=== PATIENT | female | born 1980 | race Caucasian/White ===

== ENCOUNTER 2019-08-24 19:30 | Observation (INO) | payer MEDICAID ==
[~2019-08-24] VITALS: Ht 152 cm; Wt 64.2 kg
--- OUTSIDE RECORDS SUMMARY | 2019-08-24 19:37 | XMS REPORT | Continuity of Care Document ---
Author Author [facility] Organization [facility] Address Unknown Phone Unavailable Care Team Providers Care Receiving Coordinator Name Role Phone BRIDGET HALE DO PCP Insurance Providers Payer Name Policy Number Subscriber Name Relationship [facility] [id number] Jewels Becerra 16 Self Problems Medical Problems Problem Onset Date Status Lumbar spasm Unknown Active Right shoulder strain Unknown Active Gingivitis Unknown Active Toothache Unknown Active Gingivitis Unknown Active Myalgia Unknown Active Shoulder pain Unknown Active Medications Medication Dose Route Sig Days/Qty Instructions Order Date Disc ontinued Date Status Hydrocodone Bit/Acetaminophen NEEDED 03/08/10 08/30/11 Discontinued Metoprolol Tartrate 60 Qty 06/18/13 Active Lisinopril/Hydrochlorothiazide 1 Tab PO DAILY 30 Qty 0 06/18/13 Active Hydrocodone/Acetaminophen 1-2 Tab PO EVERY 4-6 HOURS PRN PAIN 10 Qt y 12/01/13 Active Social History Social History Problem Response Recorded Date/Ashok e Smoking Status Current every day smoker 02/11/2014 10:4 0pm Hx Substance Use No 02/11/2014 10:40pm Hx Alcohol Use Y SOCIAL 02/11/2014 10:40pm Query Response Start Date Stop Date Smoking Status Current every day smoker Hospital Discharge Instructions No hospital discharge instructions. Plan of Care No plan of care. Functional Status Query Response Date Recorded Physical Hygiene Self February 11, 2014 10:40pm Disabilities None February 11, 2014 10:40pm Devices Used None February 11, 2014 10:40pm Dressing Self February 11, 2014 10:40pm Ambulation Self February 11, 2014 10:40pm Diet Self February 11, 2014 10:40pm Mental Status Alert February 11, 2014 10:49pm Disabilities None February 11, 2014 10:40pm Devices Used None February 11, 2014 10:40pm Physical Hygiene Self February 11, 2014 10:40pm Dressing Self February 11, 2014 10:40pm Ambulation Self February 11, 2014 10:40pm Diet Self February 11, 2014 10:40pm Allergies, Adverse Reactions, Alerts Allergen Type Severity Reaction Status Last Updated Aspirin Allergy Unknown Active 02/11/14 Naproxen Allergy Severe ANAPHYLACTIC Active 02/11/14 Meloxicam Allergy Unknown Active 02/11/14 Latex Allergy Intermediate RASH, ITCHING Active 02/11/14 Immunizations Name Given Type Hx Influenza Vaccination No Historical Hx Pneumococcal Vaccination No Historical Hx Tetanus, Diptheria, Pertussis Y 2008 Histori jerod Hx Influenza Vaccination No Historical Hx Tetanus, Diptheria, Pertussis Y 2008 Histori jerod Vital Signs Acute Vital Signs Vital Response Date/Time Temperature (Fahrenheit) 97.4 deg F (96.8 - 99.1) Temperature (Calculated Celsius) 36.69224 degrees C (36.0 - 37.3) Pulse Rate (adult) 97 bpm (60 - 100) Respiratory Rate 20 breaths/min (10 - 20) O2 Sat by Pulse Oximetry 94 % (90 - 100) Blood Pressure 163/107 mm Hg Height 5 ft 0 in Weight 131 lb Body Mass Index 25.0 kg/m^2 Results Test Source Date Result Interp. Ref. Range Comments Activated Partial Thromboplast Time March 08, 2010 10:4 7am 25.5 SEC N 24-36 Alanine Aminotransferase (ALT/SGPT) June 22, 2011 8:50am 30 U/L N 9-52 Albumin June 22, 2011 8:50am 3.9 G/DL N 3.5-5 .0 Albumin/Globulin Ratio June 22, 2011 8:50am 1.3 RATIO N 1.1-2.2 Alkaline Phosphatase June 22, 2011 8:50am 115 U/L N 38-126 Anion Gap March 20, 2013 10:27am 14 MEQ/L N 5-15 Aspartate Amino Transf (AST/SGOT) June 22, 2011 8:50am 1 11 U/L H 14-36 BUN/Creatinine Ratio March 20, 2013 10:27am 10 RATIO N 6-26 Band Neutrophils # June 22, 2011 8:50am 0.2 T/MM3 - Band Neutrophils % June 22, 2011 8:50am 2.0 % N 0-6 Basophils # (Auto) March 20, 2013 10:27am 0.0 T/MM3 N 0-0.2 Basophils (%) (Auto) March 20, 2013 10:27am 0.4 % N 0-2 Blood Urea Nitrogen March 20, 2013 10:27am 8.0 MG/DL N 7-17 C-Reactive Protein March 20, 2013 10:27am < 5.0 MG/L 0-9 Calcium Level March 20, 2013 10:27am 9.6 MG/DL N 8.4-10.2 Calculated Osmolality March 20, 2013 10:27am 270 MOSM/KG N 261-280 Carbon Dioxide Level March 20, 2013 10:27am 25 MEQ/L N 22-30 Chloride Level March 20, 2013 10:27am 103 MEQ/L N 98-107 Creatinine March 20, 2013 10:27am 0.8 MG/DL N 0.7 -1.2 Eosinophils # (Auto) March 20, 2013 10:27am 0.0 T/MM3 N 0-0.5 Eosinophils (%) (Auto) March 20, 2013 10:27am 0.4 % N 0-4 Erythrocyte Sedimentation Rate March 20, 2013 10:27am 1 M M/HR N 0-20 Free Thyroxine March 10, 2011 1:24pm 0.90 NG/DL N 0.78-2.19 Globulin June 22, 2011 8:50am 3.0 G/DL N 2.4-3 .6 Glucose Level March 20, 2013 10:27am 84 MG/DL N 65-110 Group A Streptococcus Screen December 23, 2010 12:32pm Negativ e - Strep culture confirmation to follow Hematocrit March 20, 2013 10:27am 44.9 % N 36- 46 Hemoglobin March 20, 2013 10:27am 15.7 GM/DL N 12 -16 Hemoglobin A1c March 10, 2011 1:24pm 4.8 % L 6-7 <6.0 NON-DIABETIC RANGE6.0-7.0 ADA THERAPEUTIC RANGE >7.0 ACTION SUGGESTED Human Chorionic Gonadotropin, Qual March 08, 2010 10:47am Negative - Lymphocytes # (Auto) March 20, 2013 10:27am 2.1 T/MM3 N 1-4.8 Lymphocytes # (Manual) June 22, 2011 8:50am 1.5 T/MM3 N 1-4.8 Lymphocytes % (Manual) June 22, 2011 8:50am 15.0 % L 23-45 Lymphocytes (%) (Auto) March 20, 2013 10:27am 29.4 % N 23-45 Mean Corpuscular Hemoglobin March 20, 2013 10:27am 33.2 U UG N 26-34 Mean Corpuscular Hemoglobin Concent March 20, 2013 10:2 7am 35.0 GM/DL N 31-37 Mean Corpuscular Volume March 20, 2013 10:27am 94.9 UM3 N 80-100 Mean Platelet Volume March 20, 2013 10:27am 8.4 UM3 L 9.4-12.4 Monocytes # (Auto) March 20, 2013 10:27am 0.4 T/MM3 N 0-0.8 Monocytes # (Manual) June 22, 2011 8:50am 0.1 T/MM3 N 0-0.8 Monocytes % (Manual) June 22, 2011 8:50am 1.0 % N 0-9.0 Monocytes (%) (Auto) March 20, 2013 10:27am 5.4 % N 0-9.0 Neutrophils # (Auto) March 20, 2013 10:27am 4.5 T/MM3 N 1.8-7.7 Neutrophils # (Manual) June 22, 2011 8:50am 8.4 T/MM3 H 1.8-7.7 Neutrophils % (Manual) June 22, 2011 8:50am 82.0 % H 33-66 Neutrophils (%) (Auto) March 20, 2013 10:27am 64.3 % N 33-66 Platelet Count March 20, 2013 10:27am 250 T/MM3 N 130-400 Potassium Level March 20, 2013 10:27am 4.3 MEQ/L N 3.6-5 Prothromb Time International Ratio March 08, 2010 10:47am 1.00 N 0.86-1.10 THERAPUTIC RANGE = 2.00-3.00 FOR ANTI-THROMBOSIS THERAPUTIC RANGE = 2.50-3.50 FOR IMPLANTED VALVE RDW Standard Deviation March 20, 2013 10:27am 43.1 FL N 36.9-50.2 Red Blood Count March 20, 2013 10:27am 4.73 M/MM3 N 4.00-5.20 Sodium Level March 20, 2013 10:27am 142 MEQ/L N 1 34-144 Thyroid Antimicrosomal Ab Titer March 10, 2011 1:24 pm Ref lab rpt scanned - --- 03/15/11 0849 ---ANTIMI C previously reported as: SENT OUT Thyroid Stimulating Hormone (TSH) March 10, 2011 1:24pm 2.45 MIU/L N 0.47-4.68 Total Bilirubin June 22, 2011 8:50am 0.60 MG/DL N 0.20-1.30 Total Protein June 22, 2011 8:50am 6.9 G/DL N 6 .3-8.2 Troponin I March 08, 2010 10:47am 0.005 ng/ml N 0 -0.12 Urine Bilirubin August 30, 2011 4:42pm Negative - Has specimen been collected/obtained? Y Urine Blood August 30, 2011 4:42pm Negative - Has specimen been collected/obtained? Y Urine Collection Type August 30, 2011 4:42pm Voided - Has specimen been collected/obtained? Y Urine Color August 30, 2011 4:42pm Yellow - Has specimen been collected/obtained? Y Urine Glucose (UA) August 30, 2011 4:42pm Negative - Has specimen been collected/obtained? Y Urine Ketones August 30, 2011 4:42pm Negative - Has specimen been collected/obtained? Y Urine Leukocyte Esterase August 30, 2011 4:42pm Negative - Has specimen been collected/obtained? Y Urine Nitrite August 30, 2011 4:42pm Negative - Has specimen been collected/obtained? Y Urine Test August 30, 2011 4:42pm Negative - Has specimen been collected/obtained? Y Urine Protein August 30, 2011 4:42pm Negative - Has specimen been collected/obtained? Y Urine Specific [place] August 30, 2011 4:42pm 1.015 - Has specimen been collected/obtained? Y Urine Turbidity August 30, 2011 4:42pm Clear - Has specimen been collected/obtained? Y Urine Urobilinogen August 30, 2011 4:42pm Normal EU/DL - Has specimen been collected/obtained? Y Urine pH August 30, 2011 4:42pm 5.0 - Has specimen been collected/obtained? Y White Blood Count March 20, 2013 10:27am 7.0 T/MM3 N 4.5-11.0 Lab Scanned Report March 20, 2013 11:45am LAB TEST FORM REQUEST [id number] - Glomerular Filtration Rate Calc March 20, 2013 10:27am 82 - Immature Granulocyte # (Auto) March 20, 2013 10:27am 0. 01 T/MM3 N 0.00-0.03 Immature Granulocyte % (Auto) March 20, 2013 10:27am 0.1 % N 0.0-0.5 Urine Microscopic Not Indicated August 30, 2011 4:42pm Not jihan cated - Has specimen been collected/obtained? Y Group A Streptococcus Culture Throat December 23, 2010 1:06pm Name: JEWELS BECERRA Unit #: [id number] : [id number] Sex: F Loc / Svc: ED DOS: 02/11/14 Signed Report #: [id number] DIAGNOSTIC IMAGING REPORT TYPE OF EXAM: SHOULDER RIGHT 2 VIEW Dictated By: PAULA BUTTS MD Indication: ITS.REASON: shoulder pain/injury Comparison: June 18, 2013 Findings: There is no acute fracture, dislocation or malalignment identified. Impression: No acute osseous abnormality. . Procedures No known history of procedures. Encounters Encounter Location Date/Time Departed Emergency Room [facility] 02/11/14 9:43p m Registered Clinic [facility] 12/17/13 9:56am Departed Emergency Room [facility] 12/01/13 6:04p m Recent Diagnosis
--- OUTSIDE RECORDS SUMMARY | 2019-08-24 19:37 | XMS REPORT | Continuity of Care Document ---
Author Author [facility] Organization [facility] Address Unknown Phone Unavailable Care Team Providers Care Novelty Maker Name Role Phone BRIDGET HALE DO PCP Insurance Providers Payer Name Policy Number Subscriber Name Relationship [facility] [id number] Jewels Becerra 16 Self Advance Directives Directive Response Recorded Date/Time Advanced Directives Type None 12/01/13 7:12pm Problems Medical Problems Problem Onset Date Status Lumbar spasm Unknown Active Right shoulder strain Unknown Active Gingivitis Unknown Active Toothache Unknown Active Gingivitis Unknown Active Medications Medication Dose Route Sig Days/Qty Instructions Order Date Disc ontinued Date Status Hydrocodone Bit/Acetaminophen NEEDED 03/08/10 08/30/11 Discontinued Metoprolol Tartrate 60 Qty 06/18/13 Active Lisinopril/Hydrochlorothiazide 30 Qty 0 06/18/13 Active [clonidine] 5 Mg PO TWICE A DAY 12/01/13 Active [klon] PO THREE TIMES A DAY 12/01/13 Active [saph] PO DAILY 12/01/13 Active Amoxicillin 1 Cap PO THREE TIMES A DAY 30 Qty 12/01/13 Active Hydrocodone/Acetaminophen 1-2 Tab PO EVERY 4-6 HOURS PRN PAIN 10 Qt y 12/01/13 Active Social History Social History Problem Response Recorded Date/Ashok e Smoking Status Current every day smoker 12/01/2013 7:12 pm Chewing Tobacco Status No 12/01/2013 7:12pm Hx Substance Use No 12/01/2013 7:12pm Hx Alcohol Use Y social/last time was 2 days ago 2013 7:12pm Query Response Start Date Stop Date Smoking Status Current every day smoker Hospital Discharge Instructions No hospital discharge instructions. Plan of Care No plan of care. Functional Status Query Response Date Recorded Physical Hygiene Self December 01, 2013 7:12pm Disabilities Visual December 01, 2013 7:12pm Devices Used Glasses December 01, 2013 7:12pm Dressing Self December 01, 2013 7:12pm Ambulation Self December 01, 2013 7:12pm Diet Self December 01, 2013 7:12pm Mental Status Alert December 01, 2013 7:23pm Disabilities Visual December 01, 2013 7:12pm Devices Used Glasses December 01, 2013 7:12pm Physical Hygiene Self December 01, 2013 7:12pm Dressing Self December 01, 2013 7:12pm Ambulation Self December 01, 2013 7:12pm Diet Self December 01, 2013 7:12pm Allergies, Adverse Reactions, Alerts Allergen Type Severity Reaction Status Last Updated Aspirin Allergy Unknown Active 12/01/13 Naproxen Allergy Severe ANAPHYLACTIC Active 12/01/13 Latex Allergy Intermediate RASH, ITCHING Active 12/01/13 Immunizations Name Given Type Hx Influenza Vaccination No Historical Hx Pneumococcal Vaccination No Historical Hx Tetanus, Diptheria, Pertussis Y 2008 Histori jerod Hx Influenza Vaccination No Historical Hx Tetanus, Diptheria, Pertussis Y 2008 Histori jerod Vital Signs Acute Vital Signs Vital Response Date/Time Temperature (Fahrenheit) 97.6 deg F (96.8 - 99.1) Temperature (Calculated Celsius) 36.52470 degrees C (36.0 - 37.3) Pulse Rate (adult) 81 bpm (60 - 100) Respiratory Rate 16 breaths/min (10 - 20) O2 Sat by Pulse Oximetry 98 % (90 - 100) Blood Pressure 160/101 mm Hg Height 5 ft 0 in Weight 135 lb Body Mass Index 26.0 kg/m^2 Results Test Source Date Result Interp. [...] Has specimen been collected/obtained? Y Urine Specific [place] August 30, 2011 4:42pm 1.015 - Has [...] 20, 2013 11:45am LAB TEST FORM REQUEST [id number] - Glomerular Filtration Rate Calc March 20, 2013 10:27am 82 - Immature Granulocyte # (Auto) March 20, 2013 10:27am 0. 01 T/MM3 N 0.00-0.03 Immature Granulocyte % (Auto) March 20, 2013 10:27am 0.1 % N 0.0-0.5 Urine Microscopic Not Indicated August 30, 2011 4:42pm Not jihan cated - Has specimen been collected/obtained? Y Group A Streptococcus Culture Throat December 23, 2010 1:06pm Procedures No known history of procedures. Encounters Encounter Location Date/Time Departed Emergency Room [facility] 12/01/13 6:04p m Recent Diagnosis
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
[2019-08-24] MEDS ORDERED: KETAMINE/NaCl 50 MG/5 ML SYRINGE (ED ONLY) IV ONE (19:45)
[2019-08-24] MEDS ORDERED: TETANUS,DIPTH,PERTUSS P/F (BOOSTRIX) 0.5 ML VIAL IM ONE (19:45)
[2019-08-24] MEDS ORDERED: ALBU90AE2 (19:46)
[2019-08-24] MEDS ORDERED: METO50TA15 PO (19:46)
[2019-08-24] MEDS ORDERED: LISI1TAB26 PO (19:46)
[2019-08-24] MEDS ORDERED: morphine INJ 10 MG/ML 1ML (SYR OR VIAL) ONE (20:17)
--- NOTE | 2019-08-24 20:19 | Diagnostic Imaging Report ---
INDICATION: Hip pain status post injury COMPARISON: None. FINDINGS: 2 views of the right hip were obtained and show no fractures, dislocations, or other acute bony abnormalities. Joint spaces are well maintained throughout. The soft tissues appear unremarkable. No radiopaque foreign bodies are identified. IMPRESSION: Unremarkable radiographic exam of the right hip. Dictated by: Dictated on workstation # [id number]
--- NOTE | 2019-08-24 20:19 | NUR ---
dr broussard here seeing patient.
--- NOTE | 2019-08-24 20:20 | Diagnostic Imaging Report ---
INDICATION: Trauma COMPARISON: None FINDINGS: Single frontal view of the chest demonstrates normal heart size and pulmonary vascularity. The lungs are well aerated and clear. No large pleural effusion or pneumothorax is seen. The visualized osseous structures show no acute abnormalities. IMPRESSION: 1. No acute cardiopulmonary process. Dictated by: Dictated on workstation # [id number]
--- NOTE | 2019-08-24 20:21 | Diagnostic Imaging Report ---
INDICATION: Pain status post injury. COMPARISON: None. EXAMINATION: Four radiographic views of the right tibia and fibula were obtained. FINDINGS: There is acute obliquely oriented fracture of the distal tibial shaft. There is mild posterior and lateral displacement of the distal fracture fragment by approximately 1 cm. Additionally, there is acute obliquely oriented fracture of the proximal fibular shaft. There is mild proximal and lateral subluxation of the distal fracture fragment. Joint spaces of the right ankle and knee are maintained. No unexpected radiopaque foreign body is seen. IMPRESSION: Acute fractures of the right tibia and fibula, as described above. Dictated by: Dictated on workstation # [id number]
[2019-08-24 20:22] LABS: BASOPHILS % (AUTO) 0 % (0-10); EOSINOPHILS # (AUTO) 0.1 10^3/uL (0.0-0.3); EOSINOPHILS % (AUTO) 1 % (0-10); HEMATOCRIT 44 % (35-52); HEMOGLOBIN 15.2 G/DL (11.5-16.0); LYMPHOCYTES # (AUTO) 1.7 X 10^3 (1.0-4.0); LYMPHOCYTES % (AUTO) 22 % (12-44); MEAN CORPUSCULAR HEMOGLOBIN 33 PG (25-34); MEAN CORPUSCULAR HGB CONC 34 G/DL (32-36); MEAN CORPUSCULAR VOLUME 95 FL (80-99); MEAN PLATELET VOLUME 8.6 FL (7.4-10.4); MONOCYTES # (AUTO) 0.3 X 10^3 (0.0-1.0); MONOCYTES % (AUTO) 4 % (0-12); NEUTROPHILS # (AUTO) 5.6 X 10^3 (1.8-7.8); NEUTROPHILS % (AUTO) 73 % (42-75); PLATELET COUNT 200 10^3/uL (130-400); RED CELL DISTRIBUTION WIDTH 13.3 % (10.0-14.5); WHITE BLOOD COUNT 7.6 10^3/uL (4.3-11.0)
--- NOTE | 2019-08-24 20:26 | NUR ---
SPLINT APPLIED TO RIGHT LEG.
[2019-08-24 20:30] LABS: ALBUMIN 4.1 GM/DL (3.2-4.5); INR 0.9 (0.8-1.4); PROTHROMBIN TIME PATIENT 12.3 SEC (12.2-14.7)
[2019-08-24] MEDS ORDERED: morphine INJ 10 MG/ML 1ML (SYR OR VIAL) IVP ONE (20:30)
[2019-08-24 20:32] LABS: CALCIUM 8.3 MG/DL (8.5-10.1)
[2019-08-24 20:33] LABS: GLUCOSE 98 MG/DL (70-105); TOTAL PROTEIN 7.2 GM/DL (6.4-8.2)
[2019-08-24 20:34] LABS: CARBON DIOXIDE 22 MMOL/L (21-32)
[2019-08-24 20:35] LABS: BILIRUBIN,TOTAL 0.2 MG/DL (0.1-1.0)
[2019-08-24 20:36] LABS: ALKALINE PHOSPHATASE 72 U/L (40-136)
[2019-08-24 20:37] LABS: CREATININE SERUM 0.74 MG/DL (0.60-1.30); GFR ESTIMATED > 60
[2019-08-24 20:38] LABS: BUN/CREATININE RATIO 8
[2019-08-24 20:39] LABS: ALANINE AMINOTRANSFERASE 33 U/L (0-55)
--- NOTE | 2019-08-24 20:51 | NUR ---
[facility] dispatch called for husbands phone number.
--- NOTE | 2019-08-24 20:55 | NUR ---
pt speaking with on phone [phone]
--- OUTSIDE RECORDS SUMMARY | 2019-08-24 20:58 | XMS REPORT | Continuity of Care Document ---
Demographics Preferred Language Unknown Marital Status Unknown Jewish Affiliation Unknown Race Unknown Ethnic Group Unknown Author Organization Unknown Address Unknown Phone Unavailable Allergies There is no data. Medications There is no data. Problems There is no data. Procedures There is no data. Results Test Result Range Comprehensive metabolic panel - 08/24/19 20:10 Carbon dioxide 22 mmol/L 21-32 Serum or plasma urea nitrogen measurement (mass/volume ) 6 mg/dL 7-18 Serum or plasma creatinine measurement (mass/volume) 0.74 mg/dL 0.60-1.30 Serum or plasma urea nitrogen/creatinine mass ratio 8 NRG Serum or plasma creatinine measurement w ith calculation of estimated glomerular filtration rate > NRG Serum or plasma glucose measurement (mass/volume) 98 mg/dL 70-105 Serum or plasma calcium measurement (mass/volume) 8.3 mg/dL 8.5-10.1 Serum or plasma total bilirubin measurement (mass/volu me) 0.2 mg/dL 0.1-1.0 Serum or plasma alkaline phosphatase kun surement (enzymatic activity/volume) 72 U/L 40-136 Serum or plasma aspartate aminotransfera se measurement (enzymatic activity/volume) 38 U/L 5-34 Serum or plasma alanine aminotransferase measurement (enzymatic activity/volume) 33 U/L 0-55 Serum or plasma protein measurement (mass/volume) 7.2 g/dL 6.4-8.2 Serum or plasma albumin measurement (mass/volume) 4.1 g/dL 3.2-4.5 CALCIUM CORRECTED 8.2 mg/dL 8.5-10.1 PT panel in platelet poor plasma by coag ulation assay - 08/24/19 20:10 Prothrombin time (PT) in platelet poor plasma by coagu lation assay 12.3 s 12.2-14.7 INR in platelet poor plasma or blood by coagulation as say 0.9 0.8-1.4 Serum or plasma choriogonadotropin (preg colleen test) detection - 08/24/19 20:10 Serum or plasma choriogonadotropin ( test) de tection NEGATIVE NEGATIVE Encounters ACCT No. Visit Date/Time Discharge Status Pt. Type Provider Facility Loc./Unit Complaint [id number] 08/24/2019 20:31:00 Document Registration
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
[2019-08-24 21:38] VITALS: BP 158/82
[2019-08-24 21:41] LABS: CHLORIDE 103 MMOL/L (98-107); POTASSIUM 3.5 MMOL/L (3.6-5.0); SODIUM 138 MMOL/L (135-145)
[2019-08-24] MEDS: morphine INJ 4 MG/ML 1 ML (VIAL/SYRINGE) IVP PRN (22:07)
[2019-08-24] MEDS ORDERED: ONDANSETRON 4 MG/2 ML (SDV) Z0FRAN IV PRN (22:30)
[2019-08-24] MEDS ORDERED: NALOXONE 0.4 MG/ML 1 ML (NARCAN) VIAL IV PRN (22:30)
[2019-08-24] MEDS: HYDROmorphone 2 MG/ML VIAL (DILAUDID) IV PRN (23:34)
[2019-08-24] MEDS: LACTATED RINGERS 1,000 ML IV SCH (23:35)
[2019-08-25] VITALS (14 sets, daily range): BP systolic 132–180; BP diastolic 80–107
[2019-08-25] MEDS: morphine INJ 4 MG/ML 1 ML (VIAL/SYRINGE) IVP PRN ×4 (01:45→18:28)
[2019-08-25] MEDS: HYDROmorphone 2 MG/ML VIAL (DILAUDID) IV PRN ×5 (03:39→20:00)
[2019-08-25] MEDS: LACTATED RINGERS 1,000 ML IV SCH ×3 (06:38→19:09)
[2019-08-25] MEDS ORDERED: DEXAMETHASONE 10 MG/ML (DECADRON) 1 ML VIAL ONE ×2 (07:17→10:07)
[2019-08-25] MEDS ORDERED: ONDANSETRON 4 MG/2 ML (SDV) Z0FRAN ONE ×2 (07:17→10:07)
[2019-08-25] MEDS ORDERED: SEVOFLURANE (ULTANE) 15 ML INHAL SOLN ONE ×2 (07:17→11:00)
[2019-08-25] MEDS ORDERED: PROPOFOL INJECTION 50 ML IV ONE (07:17)
[2019-08-25] MEDS ORDERED: LIDOCAINE PF 2% 5 ML (XYLOCAINE) VIAL ONE (07:17)
[2019-08-25] MEDS ORDERED: fentaNYL INJECTION 100 MCG/2 ML AMP ONE ×2 (07:18→09:47)
[2019-08-25] MEDS ORDERED: MIDAZOLAM 2 MG/2 ML (VERSED) VIAL ONE (07:18)
--- NOTE | 2019-08-25 07:40 | Progress Note ---
Standard Progress Note Progress Notes/Assess & Plan Date Seen by a Provider: Aug 25, 2019 Time Seen by a Provider: 07:39 Progress/Assessment & Plan denies paresthesias RLE--in splint. Intact DF and PF of toes and ankle. No pain with PROM. Sensation intact throughout R tibia fx without s/sxs of compartment syndrome to OR this AM ROBIN ARRIOLA MD Aug 25, 2019 07:40
--- NOTE | 2019-08-25 07:41 | Progress Note-Post Operative ---
Post-Operative Progess Note Surgeon (s)/Diamond Grinder (s) Surgeon ROBIN ARRIOLA MD Diamond Grinder: Dallas Macias Pre-Operative Diagnosis right tibia shaft fracture Post-Operative Diagnosis right tibia shaft fracture Procedure & Operative Findings Date of Procedure 08/25/19 Procedure Performed/Findings right tibia IM huyen Anesthesia Type GETA Estimated Blood Loss Estimated blood loss (mL): 250 ml Specimens/Packing Specimens Removed none Packing: none ROBIN ARRIOLA MD Aug 25, 2019 07:41
--- NOTE | 2019-08-25 07:41 | Progress Note-Pre Operative ---
Pre-Operative Progress Note H&P Reviewed The H&P was reviewed, patient examined and no changes noted. Date Seen by Provider: Aug 25, 2019 Time Seen by Provider: 07:40 Date H&P Reviewed: Aug 25, 2019 Time H&P Reviewed: 07:40 Pre-Operative Diagnosis: right tibia shaft fracture ROBIN ARRIOLA MD Aug 25, 2019 07:41
[2019-08-25] MEDS ORDERED: ACETAMINOPHEN 325 MG TABLET PO PRN (07:45)
[2019-08-25] MEDS ORDERED: morphine INJ 4 MG/ML 1 ML (VIAL/SYRINGE) IVP PRN (07:45)
[2019-08-25] MEDS ORDERED: ONDANSETRON 4 MG/2 ML (SDV) Z0FRAN IVP PRN ×2 (07:45→11:45)
[2019-08-25] MEDS ORDERED: meTOprolol TARTRATE 50 MG (LOPRESSOR) TAB PO SCH (08:00)
--- NOTE | 2019-08-25 08:00 | NUR ---
DR ARRIOLA CAME BY TO SEE PT PRIOR TO SURGERY THIS MORNING. PT REPORTS TAKING METOPROLOL TARTRATE 50 MG BID. SHE DID CALL HER TO VERIFY NAME AND DOSE. HER PULSE HAS BEEN ELEVATED OVER 100. DR ARRIOLA ORDERED TO START MED THIS AM AND TO TAKE 1 TABLET WITH A SMALL SIP OF WATER. HE DID CONSULT WITH ANESTHESIA PRIOR TO ORDERING.
--- NOTE | 2019-08-25 09:11 | NUR ---
NILSA RN FROM ER CAME TO GET PT FOR SURGERY. NILSA TOOK PT IN HOSPITAL BED FROM ROOM.
[2019-08-25] MEDS ORDERED: BUPIVACAINE 0.5% 30 ML (SENSORCAINE) VIAL ONE (09:13)
[2019-08-25] MEDS ORDERED: ceFAZolin INJECTION 1,000 MG ONE (09:21)
[2019-08-25] MEDS: LACTATED RINGERS 1,000 ML IV PRN ×2 (09:31→10:29)
[2019-08-25] MEDS ORDERED: METOCLOPRAMIDE INJ 10 MG/2 ML (REGLAN) ONE (09:51)
[2019-08-25] MEDS ORDERED: ROCURONIUM 10 MG/ML 5 ML SYRINGE IV ONE (09:52)
[2019-08-25] MEDS ORDERED: SUCCINYLCHOLINE INJ 100 MG/5 ML SYR ONE (09:52)
[2019-08-25] MEDS ORDERED: GLYCOPYRROLATE 0.2 MG/ML (ROBINUL) 2 ML VIAL ONE (09:56)
[2019-08-25] MEDS ORDERED: NEOSTIGMINE 3 MG/3 ML VIAL ONE (09:56)
[2019-08-25] MEDS ORDERED: HYDROmorphone 2 MG/ML VIAL (DILAUDID) ONE (10:17)
[2019-08-25] MEDS ORDERED: ESMOLOL 100 MG/10 ML (BREVIBLOC) VIAL ONE (10:26)
[2019-08-25] MEDS ORDERED: RT-ALBUTEROL SULF 2.5 MG/3 ML PRE-MIX VIAL INH ONE (11:45)
[2019-08-25] MEDS ORDERED: HYDROmorphone 2 MG/ML VIAL (DILAUDID) IV ONE (11:45)
[2019-08-25] MEDS ORDERED: MEPERIDINE (DEMEROL) INJ 50 MG/ML IVP ONE (11:45)
--- NOTE | 2019-08-25 11:52 | Diagnostic Imaging Report ---
Indication: Tibial nailing. Findings: 1 minute 59 seconds of fluoroscopy time were utilized during tibial nailing. Impression: Fluoroscopy during orthopedic surgery. Dictated by: Dictated on workstation # [id number]
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
--- NOTE | 2019-08-25 12:30 | NUR ---
PT RETURNED FROM PACU IN HOSPITAL BED BY KALANI SIMMONS RN. SURGERY WENT WELL AND THEY DID END UP DOING PROCEDURE WITH A LALIT. PT IS ASKING FOR WATER OR ICE CHIPS AT THIS TIME AND CONTINUES TO BE IN PAIN. SHE HAS FOOT SCD'S ON, IV GOING W/ LR. BUTT CATH STILL IN PLACE.
--- NOTE | 2019-08-25 13:30 | NUR ---
DR ARRIOLA ORDERED DIET TOLERATED. SHE HAS BEEN KEEPING DOWN ICE CHIPS AND WATER SINCE RETURN FOR SURGERY. THIS RN WILL ORDER CLEAR LIQUID TRAY TONIGHT TO SEE HOW SHE DOES TOLERATE IT.
--- NOTE | 2019-08-25 15:57 | Progress Note ---
Standard Progress Note Progress Notes/Assess & Plan Date Seen by a Provider: Aug 25, 2019 Time Seen by a Provider: 15:55 Progress/Assessment & Plan denies paresthesias RLE--in splint. Intact DF and PF of toes and ankle. No pain with PROM. Sensation intact throughout R tibia fx without s/sxs of compartment syndrome to OR this AM Final Diagnosis post op check No complaints denies paresthesias RLE--elevated with foot pumps. Intact DF and PF of toes and ankle. No pain with PROM in any plane. Sensation intact to light touch throughout. sym pulses s/p R tibia IM huyen without s/sxs of compartment syndrome mobilize as able ROBIN ARRIOLA MD Aug 25, 2019 15:57
[2019-08-25] MEDS: meTOprolol TARTRATE 50 MG (LOPRESSOR) TAB PO SCH (21:01)
[2019-08-25] MEDS: oxyCODONE/APAP 5/325MG (PERCOCET 5) TABLET PO PRN (21:01)
--- NOTE | 2019-08-25 21:40 | NUR ---
PT TOLERATING FULL LIQUID DIET WELL. PT ABLE TO EAT PUDDING AND ORANGE JUICE WITHOUT DIFFICULTY OR N/V. PT REQUESTS TO HAVE A REGULAR DIET FOR BREAKFAST. ORDER PLACED PER [facility]VANCE DIET TOLERATED ORDER PER DR. ARRIOLA.
[2019-08-26 00:25] VITALS: BP 130/72
[2019-08-26] MEDS: HYDROmorphone 2 MG/ML VIAL (DILAUDID) IV PRN ×4 (01:42→17:04)
[2019-08-26] MEDS: LACTATED RINGERS 1,000 ML IV SCH ×3 (03:20→21:35)
[2019-08-26] MEDS: oxyCODONE/APAP 5/325MG (PERCOCET 5) TABLET PO PRN ×4 (03:21→21:35)
[2019-08-26 04:25] VITALS: BP 131/73
[2019-08-26 04:49] LABS: HEMOGLOBIN 11.6 G/DL (11.5-16.0)
[2019-08-26 07:41] VITALS: BP 152/74
--- NOTE | 2019-08-26 08:03 | Progress Note ---
Standard Progress Note Progress Notes/Assess & Plan Date Seen by a Provider: Aug 26, 2019 Time Seen by a Provider: 08:01 Progress/Assessment & Plan denies paresthesias RLE--in splint. Intact DF and PF of toes and ankle. No pain with PROM. Sensation intact throughout R tibia fx without s/sxs of compartment syndrome to OR this AM Final Diagnosis no complaints denies paresthesias Vital Signs Date Time Temp Pulse Resp B/P (MAP) Pulse Ox O2 Delivery O2 Flow Rate FiO2 08/26/19 07:54 Room Air 08/26/19 07:41 37.0 90 18 152/74 (100) 93 Room Air 08/26/19 04:25 36.8 68 18 131/73 (92) 98 Nasal Cannula 3.00 08/26/19 00:25 37.1 97 18 130/72 (91) 94 Nasal Cannula 5.00 08/25/19 20:00 92 Nasal Cannula 3.00 08/25/19 19:55 37.2 85 18 132/87 (102) 98 Nasal Cannula 5.00 08/25/19 15:35 37.4 80 20 135/80 (98) 98 Nasal Cannula 5.00 08/25/19 14:31 99 Nasal Cannula 5.00 08/25/19 12:47 36.9 73 18 162/84 (110) 99 Nasal Cannula 5.00 08/25/19 12:20 36.9 10 170/92 (118) 95 Nasal Cannula 5 08/25/19 12:20 Nasal Cannula 5 08/25/19 12:10 10 153/90 (111) 91 OxyMask 2 08/25/19 12:05 OxyMask 2 08/25/19 12:00 10 177/90 (119) 94 OxyMask 10 08/25/19 11:50 10 180/107 (131) 95 OxyMask 10 08/25/19 11:50 OxyMask 10 08/25/19 11:40 14 166/97 (120) 93 OxyMask 10 08/25/19 11:35 OxyMask 10 08/25/19 11:30 14 179/98 (125) 88 OxyMask 10 08/25/19 11:19 OxyMask 9 08/25/19 11:19 36.4 24 178/87 (117) 94 OxyMask 9 I & O 08/26/19 07:00 Intake Total 2972 ml Output Total 4525 ml Balance -1553 ml Laboratory Tests Test 08/26/19 03:45 Range/Units Hemoglobin 11.6 # 11.5-16.0 G/DL Hematocrit 35 35-52 % RLE--no pain with PROM of toes and ankle. sensation intact throughout. Intact DF and PF of toes and ankle s/p R tibia IM huyen PT likely home tomorrow ROBIN ARRIOLA MD Aug 26, 2019 08:03
[2019-08-26] MEDS: ENOXAPARIN 40 MG/0.4 ML (LOVENOX) SYR SC SCH (08:15)
[2019-08-26] MEDS: meTOprolol TARTRATE 50 MG (LOPRESSOR) TAB PO SCH ×2 (08:15→21:35)
[2019-08-26] MEDS ORDERED: BIOT800T PO (08:36)
[2019-08-26] MEDS ORDERED: RT-ALBUINH IH (08:36)
[2019-08-26] MEDS ORDERED: LIDO1ADH66 TP (08:36)
[2019-08-26] MEDS ORDERED: MULT-1136 PO (08:36)
[2019-08-26] MEDS ORDERED: VITA200C18 PO (08:36)
[2019-08-26] MEDS ORDERED: FLUT9.9S NS (08:37)
--- NOTE | 2019-08-26 09:31 | NUR ---
SPOKE WITH THE PT AND WENT THRU THE EXT MED HISTORY TO COMPLETE THE MED REC PT WAS ABLE TO TELL ME WHAT SHE TAKES AND ALL MATCHED THE EXT MED HISTORY OTC MEDS: MTV BIOTIN VIT E LIDOCAINE PATCH PRN FLONASE PRN
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
[2019-08-26 11:41] VITALS: BP 148/76
--- NOTE | 2019-08-26 13:58 | Physical Therapy Daily Note ---
PT Daily Note-Current Subjective Patient report her right LE is "throbbing" since ambulating in a.m. (NWB right LE) Pain Numeric Pain Scale: 8 Location: Right Location Body Site: Ankle Pain Description: Throbbing Mental Status Patient Orientation: Normal For Age Attachments: IV Transfers SCALE: Activities may be completed with or without assistive devices. 1-Eegyuiqkbs-ehzvhbd completes the activity by him/herself with no assistance from a helper. 5-Set-up or Clean-up Assistance-helper sets up or cleans up; patient completes activity. [place] assists only prior to or following the activity. 4-Supervision or Touching Assistance-helper provides verbal cues and/or touching/steadying and/or contact guard assistance as patient completes activity. Assistance may be provided throughout the activity or intermittently. 3-Partial/Moderate Assistance-helper does LESS THAN HALF the effort. [place] lifts, holds or supports trunk or limbs, but provides less than half the effort. 2-Substantial/Maximal Assistance-helper does MORE THAN HALF the effort. [place] lifts or holds trunk or limbs and provides more than half the effort. 6-Deitimucc-dpplws does ALL the effort. Patient does none of the effort to complete the activity. Or, the assistance of 2 or more helpers is required for the patient to complete the activity. If activity was not attempted, code reason: 7-Patient Refused. 9-Not Applicable-not attempted and the patient did not perform the activity before the current illness, exacerbation or injury. 10-Not Attempted due to Environmental Limitations-(lack of equipment, weather restraints, etc.). 88-Not Attempted due to Medical Conditions or Safety Concerns. Weight Bearing Right Lower Extremity: Right Non Weight Bearing Left Lower Extremity: Left Weight Bearing/Tolerated Exercises Supine Ex: Ankle pumps, Heel Slides, Straight leg raise Supine Reps: 12 (issued red theraband per patient request for left LE) Assessment Patient tolerated exercise well and remained in bed with right LE elevated after treatment. Plan dismissal tomorrow. PT Fpc Goals Fpc Goals PT Manager Clinical Pharmacy Goals Time Frame: Aug 29, 2019 Roll Left & Right (QC): 6 Sit to Lying (QC): 6 Lying-Sitting on Side/Bed(QC): 6 Sit to Stand (QC): 6 Chair/Mfl-pd-Szbli Xfer(QC): 6 Toilet Transfer (QC): 6 Does the Patient Walk: Yes Walk 10 feet (QC): 6 Walk 50ft with 2 Turns (QC): 6 Walk 150 ft (QC): 6 1 Step (curb) (QC): 6 PT Plan Treatment/Plan Treatment Plan: Continue Plan of Care Treatment Plan: Education, Functional Activity Kendall, Gait, Safety, Therapeutic Exercise, Transfers Treatment Duration: Aug 29, 2019 Frequency: BID x 4 days Time/GCodes Time In: 1300 Time Out: 1308 Total Billed Treatment Time: 8 Total Billed Treatment 1 visit EX 8 min SHARATH PORTILLO PT Aug 26, 2019 13:58
--- NOTE | 2019-08-26 14:32 | Anesthesia-General Post-Op ---
General Patient Condition Mental Status/LOC: Same as Preop Cardiovascular: Satisfactory Nausea/Vomiting: Absent Respiratory: Satisfactory Pain: Controlled Complications: Absent Post Op Complications Complications None Follow Up Care/Instructions Patient Instructions None needed. Anesthesia/Patient Condition Patient Condition Patient is doing well, C/O pain in her right LE which is to be expected, stable vital signs, no apparent adverse anesthesia problems. SYLWIA SOLORZANO DO Aug 26, 2019 14:32
--- NOTE | 2019-08-26 15:40 | NUR ---
CM/SS visited with patient for discharge needs. Plan: The patient will discharge home tomorrow with a Front Wheeled Walker. CM/SS is unsure at this time if patient will need home health. DME: The patient was provided with a patient preference form. She chose [id number] in [place]. DENNYS/SIRISHA contacted the agency and spoke with Flory. Cm/SS faxed the face sheet, H&P, and script. The patient verbalized that she would prefer to pick it up on her way home. Will continue to follow.
[2019-08-26 16:00] VITALS: BP 142/73
[2019-08-26 20:00] VITALS: BP 139/71
--- NOTE | 2019-08-26 23:40 | NUR ---
PT STATES THAT THE SCDS WERE MAKING HER FEET FEEL CONSTRICTED AND REMOVED THEM. AFTER REMOVAL, PT STATES THAT THE SCD MACHINE WAS MAKING A WEIRD NOSE AND PT ATTEMPTED TO TURN SCD MACHINE OFF WITHOUT ASKING FOR ASSISTANCE. WHEN REACHING TO TURN THE SCD MACHINE OFF, THIS PULLED ON THE IV TUBING CAUSING THE IV TO BE RIPPED OUT. PT REFUSES TO HAVE ANOTHER IV INSERTED AT THIS TIME. THIS RN EDUCATED PT ON USING CALL LIGHT FOR ASSISTANCE AND REASONS FOR IV, INCLUDING PAIN MANAGEMENT USING THERAPEUTIC COMMUNICATION. PT ACKNOWLEDGED TEACHING AND VOICED UNDERSTANDING. PT STILL REFUSES IV. PT IS DRINKING PLENTY OF FLUIDS AND HAS PO PAIN MEDICATION NEEDED. WILL CONTINUE TO MONITOR.
[2019-08-27 00:11] VITALS: BP 142/97
[2019-08-27] MEDS: LACTATED RINGERS 1,000 ML IV SCH ×2 (02:52→08:29)
[2019-08-27] MEDS: oxyCODONE/APAP 5/325MG (PERCOCET 5) TABLET PO PRN ×2 (03:46→08:04)
[2019-08-27 04:00] VITALS: BP 166/96
[2019-08-27 05:08] LABS: HEMOGLOBIN 11.1 G/DL (11.5-16.0)
[2019-08-27 05:36] VITALS: BP 166/96
[2019-08-27 08:00] VITALS: BP 165/97
[2019-08-27] MEDS: meTOprolol TARTRATE 50 MG (LOPRESSOR) TAB PO SCH (08:02)
[2019-08-27] MEDS: ENOXAPARIN 40 MG/0.4 ML (LOVENOX) SYR SC SCH (08:02)
[2019-08-27] MEDS ORDERED: OXYC1TAB87 PO (09:20)
--- NOTE | 2019-08-27 09:22 | Progress Note ---
Standard Progress Note Progress Notes/Assess & Plan Date Seen by a Provider: Aug 27, 2019 Time Seen by a Provider: 09:20 Progress/Assessment & Plan denies paresthesias RLE--in splint. Intact DF and PF of toes and ankle. No pain with PROM. Sensation intact throughout R tibia fx without s/sxs of compartment syndrome to OR this AM Final Diagnosis no complaints denies paresthesias Vital Signs Date Time Temp Pulse Resp B/P (MAP) Pulse Ox O2 Delivery O2 Flow Rate FiO2 08/27/19 08:00 36.6 95 20 165/97 (119) 98 Room Air 08/27/19 04:00 36.4 87 20 166/96 (119) 94 Room Air 08/27/19 00:11 36.2 98 22 142/97 (112) 96 Room Air 08/26/19 20:00 Nasal Cannula 08/26/19 20:00 37.1 106 18 139/71 (93) 94 Room Air 08/26/19 16:00 36.2 85 20 142/73 (96) 97 Room Air 08/26/19 11:41 36.8 88 20 148/76 (100) 93 Room Air I & O 08/27/19 07:00 Intake Total 4180 ml Output Total 3450 ml Balance 730 ml Laboratory Tests Test 08/27/19 04:35 Range/Units Hemoglobin 11.1 L 11.5-16.0 G/DL Hematocrit 34 L 35-52 % RLE--incisions clean and dry. No calf tenderness. Neg Gonzalez's. INtact DF and PF of toes. sensation intact to light touch throughout. no pain with PROM of toes/ankle in any plane. Symmetric pulses s/p R Tibia IM huyen doing well DC home after PT today ROBIN ARRIOLA MD Aug 27, 2019 09:22
--- NOTE | 2019-08-27 10:18 | Physical Therapy Daily Note ---
PT Daily Note-Current Subjective Patient agrees to PT. Patient was informed of PWB status right LE per Dr. Hooper. Pain Numeric Pain Scale: 5-Moderate Pain Location: Right Location Body Site: Knee Pain Description: Acute Mental Status Patient Orientation: Normal For Age Transfers SCALE: Activities may be completed with or without assistive devices. 8-Osrswchpht-gmifyuo completes the activity by him/herself with no assistance from a helper. 5-Set-up or Clean-up Assistance-helper sets up or cleans up; patient completes activity. [place] assists only prior to or following the activity. 4-Supervision or Touching Assistance-helper provides verbal cues and/or touc boogie/steadying and/or contact guard assistance as patient completes activity. Assistance may be provided throughout the activity or intermittently. 3-Partial/Moderate Assistance-helper does LESS THAN HALF the effort. [place] lifts, holds or supports trunk or limbs, but provides less than half the effort. 2-Substantial/Maximal Assistance-helper does MORE THAN HALF the effort. [place] lifts or holds trunk or limbs and provides more than half the effort. 8-Zdhjgwqwz-rqmepy does ALL the effort. Patient does none of the effort to complete the activity. Or, the assistance of 2 or more helpers is required for the patient to complete the activity. If activity was not attempted, code reason: 7-Patient Refused. 9-Not Applicable-not attempted and the patient did not perform the activity before the current illness, exacerbation or injury. 10-Not Attempted due to Environmental Limitations-(lack of equipment, weather restraints, etc.). 88-Not Attempted due to Medical Conditions or Safety Concerns. Sit to Stand (QC): 6 Weight Bearing Right Lower Extremity: Right Partial Weight Bearing Left Lower Extremity: Left Weight Bearing/Tolerated PWB right LE per Dr. Hooper Gait Training Does the Patient Walk?: Yes Distance: 150' Walk 10 feet (QC): 6 Walk 50 ft with 2 Turns(QC): 6 Walk 150 ft (QC): 6 steady, safe and functional with FWW Assessment Patient has no concerns upon returning to home on this date. She will have a FWW for home use with PWB right LE. Education on steps given due to patient declining practice. Patient voices understanding. PT to dismiss patient from services at this time. PT It Service Manager Goals It Service Manager Goals PT [facility] Goals Time Frame: Aug 29, 2019 Roll Left & Right (QC): 6 Sit to Lying (QC): 6 Lying-Sitting on Side/Bed(QC): 6 Sit to Stand (QC): 6 Chair/Cmc-gd-Yhqdy Xfer(QC): 6 Toilet Transfer (QC): 6 Does the Patient Walk: Yes Walk 10 feet (QC): 6 Walk 50ft with 2 Turns (QC): 6 Walk 150 ft (QC): 6 1 Step (curb) (QC): 6 PT Plan Treatment/Plan Treatment Plan: Discontinue PT, goals met Treatment Plan: Education, Functional Activity Kendall, Gait, Safety, Therapeutic Exercise, Transfers Treatment Duration: Aug 29, 2019 Frequency: BID x 4 days Time/GCodes Time In: 948 Time Out: 958 Total Billed Treatment Time: 10 Total Billed Treatment 1 visit GT 10 min SHARATH PORTILLO PT Aug 27, 2019 10:18
[2019-08-27 11:42] VITALS: BP 165/97
--- NOTE | 2019-08-27 13:44 | NUR ---
CM/SS follow up. CM/SS contacted [id number] to follow up and see if patient picked up Walker. They verbalized that she picked it up. No other needs.
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
== END 2019-08-27 11:44 | disposition home or self-care (01) ==
LOC: ER 19:33 → 4TH 20:30
PROVIDERS: ADMIT Orthopaedic Surgery; ATTEND Orthopaedic Surgery
DX: S82.231A Displaced oblique fracture of shaft of right tibia, initial encounter for closed fracture (principal); M25.551 Pain in right hip; M51.36 Other intervertebral disc degeneration, lumbar region; I10 Essential (primary) hypertension; J44.9 Chronic obstructive pulmonary disease, unspecified; J40 Bronchitis, not specified as acute or chronic; L40.50 Arthropathic psoriasis, unspecified; F17.210 Nicotine dependence, cigarettes, uncomplicated; W22.8XXA Striking against or struck by other objects, initial encounter; Y92.410 Unspecified street and highway as the place of occurrence of the external cause; Z79.899 Other long term (current) drug therapy; Z88.6 Allergy status to analgesic agent; Z88.8 Allergy status to other drugs, medicaments and biological substances
CPT/HCPCS: 29505; 36415; 71045; 73502; 73590; 80053; 84703; 85014; 85018; 85025; 85610; 87081; 90471; 90715; 94664; 96374; 96375

== ENCOUNTER → 2019-10-03 | Outpatient (CLI) | payer MEDICAID ==
[~2019-10-03] MED LIST: ALBU90AE2; BIOT800T PO; FLUT9.9S NS; LIDO1ADH66 TP; LISI1TAB26 PO; METO50TA15 PO; MULT-1136 PO; OXYC1TAB87 PO; RT-ALBUINH IH; VITA200C18 PO
--- NOTE | 2019-10-03 11:22 | Diagnostic Imaging Report ---
INDICATION: Follow-up status post ORIF. COMPARISON: 08/24/2019 FINDINGS: Two radiographic views of the right tibia and fibula were obtained. Patient is status post interval ORIF of the tibia. Intramedullary huyen is seen traversing the length of the tibia. Proximal and distal anchor screws are also noted and appear appropriately positioned. No unexpected radiopaque foreign bodies are seen. As a result of the above, there is improved anatomic alignment of the tibial fracture fragments. There is some haziness involving the surrounding soft tissue structures, which may be on the basis of early callus formation. Obliquely oriented minimally displaced fracture of the proximal fibula is also noted. There is suggestion of some early healing about the proximal fibular fracture as well. No new acute fracture or dislocation is seen. Joint spaces are intact. IMPRESSION: 1. Expected postoperative changes of interval tibial ORIF as described above. Dictated by: Dictated on workstation # [id number]
== END ==
LOC: RAD FS 10:45
PROVIDERS: ATTEND Nurse Practitioner
DX: M79.604 Pain in right leg (principal); Z98.890 Other specified postprocedural states
CPT/HCPCS: 73590

== ENCOUNTER → 2019-10-29 | Outpatient (CLI) | payer MEDICAID ==
--- NOTE | 2019-10-29 12:30 | Diagnostic Imaging Report ---
INDICATION: Fracture, post fixation TECHNIQUE: AP and lateral views of the right tibia and fibula CORRELATION STUDY: 10/03/2019 FINDINGS: Longstem intramedullary huyen with proximal distal fixation screws are again demonstrated. Obliquely oriented fracture of the mid to distal tibial diaphysis is still visualized. Does appear to be slight periosteal bridging callus formation noted. The alignment appears to be generally stable. Obliquely oriented fracture through the proximal fibular shaft remains well visualized. Mild healing callus formation along its more distal component. Alignment stable with slight lateral and anterior position of the main distal fracture fragment. Visualized portions of the knee and ankle, unchanged. IMPRESSION: 1.Internal fixation of the mid-distal right tibia fracture. Slight interval healing changes noted, fracture line still well visualized. Continued visualization with no healing changes of the obliquely oriented minimally displaced proximal fibular fracture Dictated by: Dictated on workstation # [id number]
== END ==
LOC: RAD FS 11:02
PROVIDERS: ATTEND Nurse Practitioner
DX: Z48.89 Encounter for other specified surgical aftercare (principal); S82.391D Other fracture of lower end of right tibia, subsequent encounter for closed fracture with routine healing; X58.XXXD Exposure to other specified factors, subsequent encounter
CPT/HCPCS: 73590

== ENCOUNTER → 2019-12-09 | Outpatient (CLI) | payer MEDICAID ==
--- NOTE | 2019-12-09 11:16 | Diagnostic Imaging Report ---
INDICATION: Right leg fracture, followup. TIME OF EXAM: 10:24 AM. COMPARISON: 10/29/2019. FINDINGS: An intramedullary huyen with proximal and distal screws transfix the fracture near the junction of the mid and distal third of the tibia. There has been an increased amount of callus formation at the fracture site but the fracture line does remain clearly visible. The alignment is anatomic. The obliquely oriented fracture of the proximal fibula remains visible as well. The alignment is anatomic. IMPRESSION: Healing tibial and fibular fractures but the fracture lines do remain clearly visible. The alignment is anatomic. Dictated by: Dictated on workstation # [id number]
== END ==
LOC: RAD FS 10:12
PROVIDERS: ATTEND Nurse Practitioner
DX: S82.291D Other fracture of shaft of right tibia, subsequent encounter for closed fracture with routine healing (principal)
CPT/HCPCS: 73590

== ENCOUNTER 2020-09-01 22:02 | Emergency (ER) | payer MEDICAID ==
[~2020-09-01] VITALS: Ht 147.3 cm; Wt 58.0 kg
[2020-09-01] MEDS ORDERED: NS IV 1000 ML 1,000 ML IV SCH (22:15)
[2020-09-01] MEDS ORDERED: FAMOTIDINE 20MG/2ML IV (PEPCID) IVP ONE (22:15)
[2020-09-01 22:26] LABS: HEMATOCRIT 40 % (35-52); HEMOGLOBIN 14.1 G/DL (11.5-16.0); MEAN CORPUSCULAR HEMOGLOBIN 37 PG (25-34); WHITE BLOOD COUNT 6.5 10^3/uL (4.3-11.0)
[2020-09-01 22:27] LABS: BASOPHILS # (AUTO) 0.1 10^3/uL (0.0-0.1); BASOPHILS % (AUTO) 1 % (0-10); EOSINOPHILS % (AUTO) 1 % (0-10); LYMPHOCYTES % (AUTO) 32 % (12-44); MEAN CORPUSCULAR HGB CONC 35 G/DL (32-36); MEAN CORPUSCULAR VOLUME 105 FL (80-99); MEAN PLATELET VOLUME 8.8 FL (7.4-10.4); MONOCYTES # (AUTO) 0.3 X 10^3 (0.0-1.0); MONOCYTES % (AUTO) 5 % (0-12); NEUTROPHILS % (AUTO) 62 % (42-75); PLATELET COUNT 189 10^3/uL (130-400)
[2020-09-01 22:28] LABS: LYMPHOCYTES # (AUTO) 2.1 X 10^3 (1.0-4.0)
[2020-09-01] MEDS ORDERED: NS 100 ML (IVPB) BAG IV ONE (22:30)
[2020-09-01] MEDS ORDERED: IOHEXOL 350 MG/ML 100 ML (OMNIPAQUE 350) VIAL IV ONE (22:30)
[2020-09-01 22:49] LABS: BUN/CREATININE RATIO 15; CARBON DIOXIDE 20 MMOL/L (21-32); CHLORIDE 101 MMOL/L (98-107); CREATININE SERUM 0.78 MG/DL (0.60-1.30); GFR ESTIMATED > 60; POTASSIUM 3.7 MMOL/L (3.6-5.0); SODIUM 136 MMOL/L (135-145)
[2020-09-01 22:50] LABS: ALANINE AMINOTRANSFERASE 97 U/L (0-55); ALBUMIN 3.8 GM/DL (3.2-4.5); ALKALINE PHOSPHATASE 115 U/L (40-136); BILIRUBIN,TOTAL 0.4 MG/DL (0.1-1.0); GLUCOSE 87 MG/DL (70-105); LIPASE 31 U/L (8-78); TOTAL PROTEIN 6.2 GM/DL (6.4-8.2)
--- NOTE | 2020-09-01 23:03 | ED Abdominal Pain ---
General Chief Complaint: Abdominal/GI Problems Stated Complaint: ABD PAIN Nursing Triage Note: 00 mgPt in per [facility] with c/o abd pain w/ N/V/D for past 2 days. States saw Gianna Imani today and labs were drawn. Reports pain radiates into her rt shoulder. 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 4 mg Zofran and 100 fentynl per EMS. Sepsis Screen: No Definite Risk Source of Information: Patient Exam Limitations: No Limitations History of Present Illness Date Seen by Provider: September 01, 2020 Time Seen by Provider: 22:00 Initial Comments Patient is a 40-year-old female who presents with right upper quadrant pain intermittent for the past 2 days. Patient reports nausea, bilious emesis and watery diarrhea. Pain is described as sharp and radiates to her right shoulder blade. It is rated continuous and rated moderate to severe. It has progressed since patient was evaluated by her PCP earlier today. Labs were drawn. Results are unknown. Patient denies hematemesis coffee-ground emesis, melena and hematochezia. No fever chills or sweats. No chest pain palpitations shortness of breath. No other acute symptoms or complaints. Patient still has a gallbladder. She drinks heavily on the weekend and has had alcohol earlier today. Timing/Duration: 2-3 Days Severity/Quality: Moderate Location: Other Radiation: Other Activities at Onset: Other Modifying Factors: Improves With Other Associated Symptoms: Other Allergies and Home Medications Allergies Coded Allergies: aspirin (Verified Allergy, Unknown, 08/24/19) naproxen (Verified Allergy, Unknown, 08/24/19) Home Medications Albuterol Sulfate 1 Puff Puff, 2 PUFF IH Q4H PRN for SHORTNESS OF BREATH, (Reported) 1 PUFF = 90 MCG Biotin 800 Mcg Tablet, 800 MCG PO DAILY, (Reported) Fluticasone Propionate 9.9 Ml [place].susp, 1 SPRAY NS DAILY PRN for CONGESTION, (Reported) 1 SPRAY EACH NARE DAILY Lidocaine 1 Each Adh..patch, 1 EACH TP DAILY PRN for PAIN-BREAKTHROUGH, (Reported) Lisinopril/Hydrochlorothiazide 1 Each Tablet, 1 EA PO 1400, (Reported) Metoprolol Tartrate 50 Mg Tablet, 50 MG PO BID, (Reported) Multivitamin 1 Each Tablet, 1 EACH PO DAILY, (Reported) Oxycodone HCl/Acetaminophen 1 Each Tablet, 1 TAB PO Q4H Prescribed by: ROBIN ARRIOLA on 08/27/19 0920 Vitamin E Acetate 200 Unit Capsule, 200 UNIT PO DAILY, (Reported) Patient Home Medication List Home Medication List Reviewed: Yes Review of Systems Review of Systems Constitutional: see HPI EENTM: See HPI Respiratory: See HPI Cardiovascular: See HPI Gastrointestinal: See HPI Genitourinary: See HPI Musculoskeletal: see HPI Skin: see HPI Psychiatric/Neurological: See HPI Endocrine: See HPI Hematologic/Lymphatic: See HPI All Other Systems Reviewed Negative Unless Noted: Yes Past Zvalhkv-Xsxbwq-Mixilo Hx Past Med/Social Hx: Reviewed Nursing Past Med/Soc Hx Patient Social History Alcohol Use: Regular Use Number of Drinks Today: AA Alcohol Beverage of Choice: Beer Smoking Status: Current Everyday Smoker Type Used: Cigarettes 2nd Hand Smoke Exposure: Yes Recent Infectious Disease Expo: No Recent Hopitalizations: No Immunizations Up To Date Tetanus Booster (TDap): Unknown Date of Pneumonia Vaccine: Jul 30, 2014 Seasonal Allergies Seasonal Allergies: No Past Medical History Surgeries: No Respiratory: Yes Asthma Currently Using CPAP: No Currently Using BIPAP: No Cardiac: Yes Hypertension Neurological: No : No 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 oz. kg; 26.00 BMI Method: General Appearance: WD/WN, no apparent distress, obese, other (Facial flushing with rubor, conjunctiva injected. 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 as tested, alert, oriented x 3 Skin: normal color Lymphatic: no adenopathy Focused Exam Sepsis Stage: Ruled Out Progress/Results/Core Measures Results/Orders Lab Results Laboratory Tests Test 09/01/20 22:14 Range/Units White Blood Count 6.5 4.3-11.0 10^3/uL Red Blood Count 3.86 L 4.35-5.85 10^6/uL Hemoglobin 14.1 11.5-16.0 G/DL Hematocrit 40 35-52 % Mean Corpuscular Volume 105 H 80-99 FL Mean Corpuscular Hemoglobin 37 H 25-34 PG Mean Corpuscular Hemoglobin Concent 35 32-36 G/DL Red Cell Distribution Width 13.2 10.0-14.5 % Platelet Count 189 130-400 10^3/uL Mean Platelet Volume 8.8 7.4-10.4 FL Immature Granulocyte % (Auto) 0 % Neutrophils (%) (Auto) 62 42-75 % Lymphocytes (%) (Auto) 32 12-44 % Monocytes (%) (Auto) 5 0-12 % Eosinophils (%) (Auto) 1 0-10 % Basophils (%) (Auto) 1 0-10 % Neutrophils # (Auto) 4.0 1.8-7.8 X 10^3 Lymphocytes # (Auto) 2.1 1.0-4.0 X 10^3 Monocytes # (Auto) 0.3 0.0-1.0 X 10^3 Eosinophils # (Auto) 0.0 0.0-0.3 10^3/uL Basophils # (Auto) 0.1 0.0-0.1 10^3/uL Immature Granulocyte # (Auto) 0.0 0.0-0.1 10^3/uL Sodium Level 136 135-145 MMOL/L Potassium Level 3.7 3.6-5.0 MMOL/L Chloride Level 101 98-107 MMOL/L Carbon Dioxide Level 20 L 21-32 MMOL/L Anion Gap 15 H 5-14 MMOL/L Blood Urea Nitrogen 12 7-18 MG/DL Creatinine 0.78 0.60-1.30 MG/DL Estimat Glomerular Filtration Rate > 60 BUN/Creatinine Ratio 15 Glucose Level 87 70-105 MG/DL Calcium Level 8.0 L 8.5-10.1 MG/DL Corrected Calcium 8.2 L 8.5-10.1 MG/DL Total Bilirubin 0.4 0.1-1.0 MG/DL Aspartate Amino Transf (AST/SGOT) 226 H 5-34 U/L Alanine Aminotransferase (ALT/SGPT) 97 H 0-55 U/L Alkaline Phosphatase 115 40-136 U/L Troponin I < 0.30 <0.30 NG/ML Total Protein 6.2 L 6.4-8.2 GM/DL Albumin 3.8 3.2-4.5 GM/DL Lipase 31 8-78 U/L Serum Alcohol 273 H <10 MG/DL My Orders Orders - PAULA MITCHELL DO Cbc With Automated Diff (09/01/20 22:10) Comprehensive Metabolic Panel (09/01/20 22:10) Troponin I Fs (09/01/20 22:10) Ekg-Prn For Chest Pain Or Rhyt (09/01/20 22:10) Chest 1 View Ap/Pa Only (09/01/20 22:10) Lipase (09/01/20 22:10) Ns Iv 1000 Ml (Sodium Chloride 0.9%) (09/01/20 22:15) Famotidine Injection (Pepcid Injection) (09/01/20 22:15) Ct Abdomen/Pelvis W (09/01/20 22:14) Iohexol Injection (Omnipaque 350 Mg/Ml 1 (09/01/20 22:30) Di Iv Start (Assessment) .IV start (09/01/20 22:16) Ns (Ivpb) (Sodium Chloride 0.9% Ivpb Bag (09/01/20 22:30) Alcohol (09/01/20 22:57) Lorazepam Injection (Ativan Injection) (09/02/20 00:00) Medications Given in ED Current Medications Medications Dose Ordered Sig/[place] Route Start Time Stop Time Status Last Admin Dose Admin Famotidine 20 mg ONCE ONCE IVP 09/01/20 22:15 09/01/20 22:16 DC 09/01/20 22:23 20 MG Iohexol 100 ml ONCE ONCE IV 09/01/20 22:30 09/01/20 22:31 DC 09/01/20 22:39 100 ML Sodium Chloride 100 ml ONCE ONCE IV 09/01/20 22:30 09/01/20 22:31 DC 09/01/20 22:40 100 ML Vital Signs/I&O 09/01/20 22:02 Temp 36.7 Pulse 98 Resp 16 B/P (MAP) 141/93 (109) Pulse Ox 97 O2 Delivery Room Air 09/01/20 23:59 Intake Total 800 ml Balance 800 ml Blood Pressure Mean: 109 Departure Communication (Admissions) EKG: Reviewed CT abdomen pelvis: No acute intra-abdominal disease. Patient given 100 fentanyl, 4 of Zofran prior to ED arrival. Pepcid and Ativan in the ED. Patient with elevation of LFTs and alcohol. Patient states she has had one drink earlier today. Suspect peptic ulcer disease versus pancreatitis versus biliary colic. Patient resting much more comfortably. Explained to the patient the importance of abstaining from alcohol for several months to allow for possible peptic ulcer to heal. She is to otherwise follow-up with her PCP for reevaluation tomorrow. Patient states she does experience some symptoms of alcohol withdrawal but denies hallucinations and seizures. Will prescribe Ativan to facilitate outpatient detox. Explicit and strict return precautions reviewed. Patient verbalizes understanding agreement discharge instructions prior to departure. Impression Primary Impression: Abdominal pain Additional Impression: Alcohol dependence Disposition: HOME, SELF-CARE Condition: Stable Departure-Patient Inst. Decision time for Depature: 00:14 Referrals: NO,LOCAL PHYSICIAN (PCP/Family) Primary Care Physician Patient Instructions: Alcohol Use Disorder ED, Severe Abdominal Pain, Adult (DC) Add. Discharge Instructions: You were evaluated in the emergency department for abdominal pain. Lab and imaging were performed and are nondiagnostic. The exact cause of your symptoms is not being determined. Symptoms are most consistent with peptic ulcer disease versus gastritis versus possible gallbladder disease. Please discontinue alcohol, caffeine, spicy foods take newly prescribed medications as directed. Additionally, you can take Ativan as prescribed for symptoms withdrawal. Follow-up with your PCP tomorrow for reevaluation. If you develop new or worsening symptoms, return to the ED. All discharge instructions reviewed with patient and/or family. Voiced understanding. Scripts Lorazepam (Ativan) 2 Mg Tablet 2 MG PO Q4H for Anxiety for 7 Days, #12 TAB Prov: PAULA MITCHELL DO 09/02/20 Ondansetron (Ondansetron Odt) 4 Mg Tab.rapdis 4 MG PO Q6H, #10 TAB Prov: PAULA MITCHELL DO 09/02/20 Omeprazole (Omeprazole) 40 Mg Capsule. 40 MG PO DAILY PRN, #30 CAP Prov: PAULA MITCHELL DO 09/02/20 Famotidine (Pepcid) 20 Mg Tablet 20 MG PO BID, #30 TAB Prov: PAULA MITCHELL DO 09/02/20 PAULA MITCHELL DO September 01, 2020 23:02
[2020-09-02] MEDS ORDERED: LORazepam INJ 2 MG/ML (ATIVAN) VIAL IVP ONE
[2020-09-02] MEDS ORDERED: OMEP40CA27 PO (00:17)
[2020-09-02] MEDS ORDERED: ONDA4TAB11 PO (00:17)
[2020-09-02] MEDS ORDERED: FAMO-119 PO (00:17)
[2020-09-02] MEDS ORDERED: LORA-407 PO (00:17)
[2020-09-02 00:33] VITALS: BP 141/93
--- NOTE | 2020-09-02 05:21 | Diagnostic Imaging Report ---
INDICATION: Chest pain Portable chest 10:37 PM Heart size and pulmonary vascularity are normal. There is some pleural scarring at the left lung base with some tenting laterally. This is unchanged compared to 08/24/2019. There are no infiltrates, effusions or pneumothoraces. IMPRESSION: Pleural parenchymal scarring left lateral lung base. This is stable from prior exams. No acute abnormality seen. Dictated by: Dictated on workstation # [id number]
--- NOTE | 2020-09-02 06:18 | Diagnostic Imaging Report ---
PROCEDURE: CT abdomen and pelvis with contrast. TECHNIQUE: Multiple contiguous axial images were obtained through the abdomen and pelvis after administration of intravenous contrast. Auto Exposure Controls were utilized during the CT exam to meet ALARA standards for radiation dose reduction. All CT scans use one or more of the following dose optimizing techniques: automated exposure control, MA and/or KvP adjustment based on patient size and exam type or iterative reconstruction. INDICATION: Abdominal pain with nausea and vomiting. Thyroid storm. Patient has been treated with radiation. FINDINGS: Lung bases are clear. There is diffuse fatty change of the liver with mild hepatomegaly. The gallbladder and bile ducts are normal. Pancreas and spleen are normal. Adrenal glands and kidneys are normal. The bowel gas pattern is normal throughout. There is no evidence of bowel obstruction. No evidence of constipation. No free air or free fluid. No bony abnormalities. IMPRESSION: Fatty change of the liver, otherwise normal CT abdomen. These findings are concordant with the preliminary report. Dictated by: Dictated on workstation # [id number]
== END 2020-09-02 00:34 | disposition home or self-care (01) ==
LOC: EDUNIT# 22:02 → ER FS 22:03
DX: R10.11 Right upper quadrant pain (principal); J45.909 Unspecified asthma, uncomplicated; I10 Essential (primary) hypertension; G89.29 Other chronic pain; M54.9 Dorsalgia, unspecified; E66.9 Obesity, unspecified; F10.20 Alcohol dependence, uncomplicated; F17.210 Nicotine dependence, cigarettes, uncomplicated; Z88.8 Allergy status to other drugs, medicaments and biological substances; Z68.26 Body mass index [BMI] 26.0-26.9, adult; Z79.899 Other long term (current) drug therapy; Z79.891 Long term (current) use of opiate analgesic
CPT/HCPCS: 36415; 71045; 74177; 80053; 83690; 84484; 85025; 99284; G0480; 80320

== ENCOUNTER 2020-09-29 12:37 | Emergency (ER) | payer MEDICAID ==
[~2020-09-29] VITALS: Ht 152.4 cm; Wt 589.0 kg
[~2020-09-29 12:37] MED LIST changes: +FAMO-119 PO; +LORA-407 PO; +OMEP40CA27 PO; +ONDA4TAB11 PO
--- NOTE | 2020-09-29 13:19 | Diagnostic Imaging Report ---
INDICATION: Leg pain. COMPARISON: 12/09/2019. TECHNIQUE: Two radiographs of the right tibia and fibula dated 09/29/2020. FINDINGS: The previously noted proximal fibular fracture demonstrates interval healing, appearing nearly completely healed at this time. Interval healing of the previously noted internally fixated distal tibial shaft fracture with increasing callus formation and decreasing conspicuity of the fracture planes; however, some of the fracture planes remain slightly visualized. Fracturing of the 2 screws involving the distal aspect of the intramedullary huyen within the tibia. No new fracture or dislocation. No suspicious radiopaque foreign body. IMPRESSION: Interval healing although slightly incomplete healing of the previously noted internally fixated distal tibial shaft fracture remaining in stable alignment. Fracturing of the 2 distal screws associated with the tibial intramedullary huyen. Interval healing of the previously noted proximal fibular fracture. No new acute fracture. Dictated by: Dictated on workstation # [id number]
--- NOTE | 2020-09-29 14:06 | Diagnostic Imaging Report ---
INDICATION: Right leg pain, post leg surgery for fracture 8 months ago. TECHNIQUE: Multiple real-time grayscale images were obtained over the right lower extremity in various projections, bilaterally. Additional duplex Doppler and color Doppler images were also obtained. CORRELATION STUDY: None FINDINGS: Color and grayscale sonographic images demonstrate no intraluminal defect within the visualized portion of the common femoral, superficial femoral and/or popliteal veins to suggest thrombus formation. These vessels demonstrate normal response to compression and augmentation. No soft tissue fluid collection. IMPRESSION: 1. Negative for deep venous thrombosis of the right leg. Dictated by: Dictated on workstation # [id number]
--- NOTE | 2020-09-29 14:53 | ED Lower Extremity ---
General Chief Complaint: Lower Extremity Stated Complaint: R LEG PAIN Nursing Triage Note: pt arrived by private vehicle with chief complaint of right leg pain/injury. Onset was 2 days ago, when the patient was turning and had leg pain where she previously had surgery by Dr. Arriola. Pt stated she had pain when moving foot up or down and had shooting pain down the leg. Pt stated pain was about a 6. Pt is allergic to aspirin. Pt smokes 5 cigs a day, denies drinking or using drugs. vitals were done on arrival. report was given to provider. Nursing Sepsis Screen: No Definite Risk Source: patient, old records Exam Limitations: no limitations History of Present Illness Date Seen by Provider: Sep 29, 2020 Time Seen by Provider: 12:45 Initial Comments This 40-year-old male presents to the emergency room with complaints of right lower leg pain on the lateral aspect after pivoting on that foot. There was no blunt trauma, only a twisting or pivoting motion. Pain is been present for about 2 days. She has a history of tibial and fibula fracture about a year ago with internal fixation by Dr. ARRIOLA. Allergies and Home Medications Allergies Coded Allergies: aspirin (Verified Allergy, Unknown, 08/24/19) naproxen (Verified Allergy, Unknown, 08/24/19) Home Medications Albuterol Sulfate 1 Puff Puff, 2 PUFF IH Q4H PRN for SHORTNESS OF BREATH, (Reported) 1 PUFF = 90 MCG Biotin 800 Mcg Tablet, 800 MCG PO DAILY, (Reported) Famotidine 20 Mg Tablet, 20 MG PO BID Prescribed by: PAULA MITCHELL on 09/02/2016 Fluticasone Propionate 9.9 Ml [place].susp, 1 SPRAY NS DAILY PRN for CONGESTION, (Reported) 1 SPRAY EACH NARE DAILY Lidocaine 1 Each Adh..patch, 1 EACH TP DAILY PRN for PAIN-BREAKTHROUGH, (Reported) Lisinopril/Hydrochlorothiazide 1 Each Tablet, 1 EA PO 1400, (Reported) Lorazepam 2 Mg Tablet, 2 MG PO Q4H Prescribed by: PAULA MITCHELL on 09/02/2016 Metoprolol Tartrate 50 Mg Tablet, 50 MG PO BID, (Reported) Multivitamin 1 Each Tablet, 1 EACH PO DAILY, (Reported) Omeprazole 40 Mg Capsule.dr, 40 MG PO DAILY PRN Prescribed by: PAULA MITCHELL on 09/02/2016 Ondansetron 4 Mg Tab.rapdis, 4 MG PO Q6H Prescribed by: PAULA MITCHELL on 09/02/2016 Oxycodone HCl/Acetaminophen 1 Each Tablet, 1 TAB PO Q4H Prescribed by: ROBIN ARRIOLA on 08/27/19 0920 Vitamin E Acetate 200 Unit Capsule, 200 UNIT PO DAILY, (Reported) Patient Home Medication List Home Medication List Reviewed: Yes Review of Systems Constitutional: no symptoms reported Respiratory: no symptoms reported : No Musculoskeletal: see HPI Skin: no symptoms reported Psychiatric/Neurological: No Symptoms Reported Past Isuemqa-Ijysqh-Vfjadd Hx Patient Social History Alcohol Use: Denies Use Number of Drinks Today: AA Alcohol Beverage of Choice: Beer Type Used: Cigarettes 2nd Hand Smoke Exposure: Yes Recent Infectious Disease Expo: No Recent Hopitalizations: No Immunizations Up To Date Tetanus Booster (TDap): Unknown Date of Pneumonia Vaccine: Jul 30, 2014 Seasonal Allergies Seasonal Allergies: No Past Medical History Surgeries: Yes (right leg w/ huyen) Orthopedic (ORIF of the right tibia), Tubal Ligation Respiratory: Yes Asthma Currently Using CPAP: No Currently Using BIPAP: No Cardiac: Yes Hypertension Neurological: No 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 oz. kg; 253.00 BMI Method: General Appearance: WD/WN, no apparent distress Legs: right leg other (Surgical changes and scarring noted to the right lower extremity with some muscle atrophy. There is tenderness along the lateral aspect of the right lower leg. No inflammatory changes.) Progress/Results/Core Measures Results/Orders My Orders Orders - MARK QUINTERO MD Tibia/Fibula, Right, 2 Views (09/29/20 12:51) Us Venous Lower Ext Rt (09/29/20 12:51) Vital Signs/I&O 09/29/20 09/29/20 12:45 15:07 Temp 36.2 Pulse 102 88 Resp 18 16 B/P (MAP) 203/121 (148) 149/115 Pulse Ox 97 97 O2 Delivery Room Air Room Air Blood Pressure Mean: 148 Progress Progress Note : Progress Note X-rays and venous ultrasound were obtained of the right lower leg. No DVT was identified. Healing of fracture is noted. The huyen is in place but there are fractures of the distal screws. These are old wound compared with prior x-rays. This was discussed with Dr. ARRIOLA and no emergent treatments were recommended. Patient was advised to follow-up on an outpatient basis and take Tylenol and ibuprofen for pain. Departure Impression Primary Impression: Right leg pain Disposition: HOME, SELF-CARE Condition: Stable Departure-Patient Inst. Decision time for Depature: 14:52 Referrals: NO,LOCAL PHYSICIAN (PCP/Family) Primary Care Physician Patient Instructions: NO INSTRUCTIONS GIVEN Add. Discharge Instructions: Follow-up with Dr. Arriola regarding the pain in your right leg. Call to make an appointment. You may continue using Tylenol and/or ibuprofen for treatment of your pain. Call with questions or concerns. Return to the ER if you have worsening symptoms. All discharge instructions reviewed with patient and/or family. Voiced under standing. Copy Copies To 1: ROBIN ARRIOLA MD, JOSHUA T MD Sep 29, 2020 14:53
[2020-09-29 15:07] VITALS: BP 149/115
== END 2020-09-29 15:07 | disposition home or self-care (01) ==
LOC: EDUNIT# 12:37 → ER 12:38
DX: M79.661 Pain in right lower leg (principal); Z87.81 Personal history of (healed) traumatic fracture; I10 Essential (primary) hypertension; J45.909 Unspecified asthma, uncomplicated; G89.29 Other chronic pain; M54.9 Dorsalgia, unspecified; F17.210 Nicotine dependence, cigarettes, uncomplicated; Z79.891 Long term (current) use of opiate analgesic; Z79.51 Long term (current) use of inhaled steroids; Z79.899 Other long term (current) drug therapy; X50.1XXA Overexertion from prolonged static or awkward postures, initial encounter
CPT/HCPCS: 73590

== ENCOUNTER 2021-12-01 11:21 | Emergency (ER) | payer MEDICAID ==
[~2021-12-01 11:21] MED LIST changes: -LISI1TAB26 PO; +LISI1TAB48 PO; -OMEP40CA27 PO; +OMEP40CA6 PO
--- NOTE | 2021-12-01 11:45 | ED Lower Extremity ---
General Chief Complaint: Lower Extremity Stated Complaint: BURST VESSEL LT LEG Source: patient Exam Limitations: no limitations History of Present Illness Date Seen by Provider: Dec 01, 2021 Time Seen by Provider: 11:27 Initial Comments 41-year-old female with past medical history of hypertension coming in due to a bruise to her left lateral leg. She was standing up while in a chair in the shop outside felt a sharp pain in her left lateral leg and immediately noticed some bruising and swelling. Says there is no bite of any kind. The pain then radiated down her leg. Its moderate, now throbbing, intermittent, worse with touching it, better with rest. She is not taking any medicines for it. She otherwise denies any other acute complaints. Does not take any blood thinners Allergies and Home Medications Allergies Coded Allergies: aspirin (Verified Allergy, Unknown, 08/24/19) naproxen (Verified Allergy, Unknown, 08/24/19) Patient Home Medication List Home Medication List Reviewed: Yes Albuterol Sulfate (Proair Hfa) 1 Puff Puff, 2 PUFF IH Q4H PRN for SHORTNESS OF BREATH, (Reported) Entered as Reported by: JUAN C LUONG on 08/26/19835 Biotin (Biotin) 800 Mcg Tablet, 800 MCG PO DAILY, (Reported) Entered as Reported by: JUAN C LUONG on 08/26/19835 Famotidine (Pepcid) 20 Mg Tablet, 20 MG PO BID Prescribed by: PAULA MITCHELL on 09/02/2016 Fluticasone Propionate (Flonase Allergy Relief) 9.9 Ml [place].susp, 1 SPRAY NS DAILY PRN for CONGESTION, (Reported) Entered as Reported by: JUAN C LUONG on 08/26/19 08 Lidocaine (Lidocaine Pain Relief) 1 Each Adh..patch, 1 EACH TP DAILY PRN for PAIN-BREAKTHROUGH, (Reported) Entered as Reported by: JUAN C LUONG on 08/26/19 08 Lisinopril/Hydrochlorothiazide (Lisinopril-Hctz 20-25 mg Tab) 1 Each Tablet, 1 EA PO 1400, (Reported) Entered as Reported by: KAILA SWANSON on 08/24/191945 Lorazepam (Ativan) 2 Mg Tablet, 2 MG PO Q4H Prescribed by: PAULA MITCHELL on 09/02/2016 Metoprolol Tartrate (Metoprolol Tartrate) 50 Mg Tablet, 50 MG PO BID, (Reported) Entered as Reported by: KAILA SWANSON on 08/24/191945 Multivitamin (Multivitamin) 1 Each Tablet, 1 EACH PO DAILY, (Reported) Entered as Reported by: JUAN C LUONG on 08/26/19 08 Omeprazole (Omeprazole) 40 Mg Capsule.dr, 40 MG PO DAILY PRN Prescribed by: PAULA MITCHELL on 09/02/2016 Ondansetron (Ondansetron Odt) 4 Mg Tab.rapdis, 4 MG PO Q6H Prescribed by: PAULA MITCHELL on 09/02/2016 Oxycodone HCl/Acetaminophen (Percocet 5-325 mg Tablet) 1 Each Tablet, 1 TAB PO Q4H Prescribed by: ROBIN ARRIOLA on 08/27/19919 Vitamin E Acetate (Vitamin E) 200 Unit Capsule, 200 UNIT PO DAILY, (Reported) Entered as Reported by: JUAN C LUONG on 08/26/19835 Review of Systems Constitutional: No fever EENTM: No blurred vision Respiratory: No cough Cardiovascular: No chest pain Gastrointestinal: No abdominal pain Genitourinary: no symptoms reported Musculoskeletal: see HPI Skin: see HPI Psychiatric/Neurological: No Symptoms Reported All Other Systems Reviewed Negative Unless Noted: Yes Past Pkkagix-Wortrd-Uucsnf Hx Patient Social History Tobacco Use?: Yes Tobacco type used: Cigarettes Smoking Status: Current Everyday Smoker Substance use?: No Alcohol Use?: Yes Alcohol Frequency: Couple times a week Pt feels they are or have been: No Immunizations Up To Date Tetanus Booster (TDap): Unknown First/Initial COVID19 Vaccinat: Not currently vaccinated Seasonal Allergies Seasonal Allergies: No Past Medical History Surgery/Hospitalization HX: RA; Psoratic arthritis; Psoriasis; Graves Disease treated with radiation; HTN Surgeries: Yes (right leg w/ huyen) Orthopedic, Tubal Ligation Respiratory: Yes Asthma Currently Using CPAP: No Currently Using BIPAP: No Cardiac: Yes Hypertension Neurological: No 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 oz. kg; 253.00 BMI Method: General Appearance: WD/WN, no apparent distress HEENT: PERRL/EOMI, normal ENT inspection, pharynx normal Neck: non-tender, full range of motion, supple, normal inspection Cardiovascular: regular rate, rhythm, no edema, no murmur Respiratory: chest non-tender, lungs clear, normal breath sounds, no respiratory distress, no accessory muscle use Gastrointestinal: normal bowel sounds, non tender, soft; No distended, No guarding Back: normal inspection Legs: left leg other (Small area of ecchymosis over the left lateral thigh about mid femur with some swelling and tenderness to palpation over an area that was clearly a varicose vein) Knees: bilateral knee other (No swelling or tenderness felt behind the knees in the popliteal fossa, no swelling in the calves or pain with squeeze) Neurologic/Tendon: normal sensation, normal motor functions, other (Normal strength with hip abduction and abduction) Neurologic/Psychiatric: no motor/sensory deficits, alert, normal mood/affect Skin: normal color, warm/dry Lymphatic: no adenopathy Progress/Results/Core Measures Progress Progress Note : Progress Note 41-year-old female with above history coming in due to pain and a bruise noted to the left lateral thigh. ABCs were intact and vitals were stable on pres entation. Physical exam appears to be a typical bruise. Possible there was a small muscle tear versus small insect bite. No signs of DVT. No signs of infection. Muscle strength is normal and does not have any evidence of large muscle tear. I believe she is stable for discharge with outpatient follow-up. She was sent home with strict return precautions Departure Impression Primary Impression: Traumatic ecchymosis of left thigh Qualified Codes: S70.12XA - Contusion of left thigh, initial encounter Disposition: HOME, SELF-CARE Condition: Stable Departure-Patient Inst. Decision time for Depature: 11:44 Referrals: NO,LOCAL PHYSICIAN (PCP/Family) Primary Care Physician Patient Instructions: Contusion (DC) Add. Discharge Instructions: Fortunately this does not look like any type of serious blood clot or blockage. This does appear to be a bruise whether it was by a microtear and a muscle, potential insect bite, or could have been a blood vessel leaking like you have mentioned. Fortunately it does not appear dangerous. I would ice it, take Tylenol as needed for pain. Follow-up with your primary care provider in the next week or so for a check of the leg as well as to discuss being on cholesterol medications since you mentioned this. Work/School Note: Work Release Form Date Seen in the Emergency Department: Dec 01, 2021 Return to Work: Dec 02, 2021 Restrictions: No Restrictions LEONELA GOMES MD Dec 01, 2021 11:45
[2021-12-01 11:47] VITALS: BP 159/111
== END 2021-12-01 11:46 | disposition home or self-care (01) ==
LOC: EDUNIT# 11:21 → ER FS 11:23
DX: S70.12XA Contusion of left thigh, initial encounter (principal); F17.210 Nicotine dependence, cigarettes, uncomplicated; Z28.310 Unvaccinated for COVID-19; X58.XXXA Exposure to other specified factors, initial encounter; Y92.513 Shop (commercial) as the place of occurrence of the external cause
CPT/HCPCS: 99281

== ENCOUNTER → 2022-01-19 | Outpatient (CLI) | payer MEDICAID ==
--- NOTE | 2022-01-10 21:16 | HISTORY AND PHYSICAL ---
DATE OF SERVICE: ATTENDING BUSINESS CENTER MANAGER: Mahnaz Maki APRN. HISTORY OF PRESENT ILLNESS: The patient is a 41-year-old female, who has had a longstanding history of fibrocystic breast, which had become painful. She did have a mammogram performed due to breast pain, where two lesions were done identified of the right breast, one which was subareolar and the other at approximately the 11 o'clock position, both small and likely consistent with fibrocystic disease; however, could not rule out a potential neoplastic process. She does not report any abnormal nipple discharge. She has been six times with three live births. She reports that she did take oral contraceptive pills in the past; however, unsure of the duration. She has not had any previous breast biopsies before in the past. She started menses at around age 11 and has not reached menopause at this point. She does not report any family history of breast cancer. PAST MEDICAL HISTORY: History of thyrotoxicosis, hypertension, psoriatic arthritis, rheumatoid arthritis, and degenerative joint disease. PAST SURGICAL HISTORY: Tubal ligation, right lower extremity open reduction and internal fixation. ALLERGIES: ASPIRIN. MEDICATIONS: Albuterol inhaler two puffs b.i.d. p.r.n., clobetasol ointment b.i.d., cyclobenzaprine 10 mg t.i.d., dicyclomine 20 mg daily, famotidine 20 mg daily, gabapentin 100 mg daily, hydrochlorothiazide 50 mg daily, hydrocodone 7.5 mg q.6 hours p.r.n., lisinopril 40 mg daily, lorazepam 1 mg p.r.n., metoprolol 50 mg daily, omeprazole 40 mg daily, ezetimibe 10 mg daily, fluticasone 50 mcg one spray daily, and trazodone 50 mg each day at bedtime. SOCIAL HISTORY: Positive smoke [id number], social alcohol. FAMILY HISTORY: Maternal grandmother, colon cancer. Sister, cervical cancer. REVIEW OF SYSTEMS: A well-nourished female, in no acute distress. She is not experiencing any shortness of breath or difficulty in breathing. No chest pain, palpitations, diaphoresis. No nausea, vomiting, no diarrhea or constipation. No fever, chills, and no recent inadvertent weight loss. All other review of systems negative. PHYSICAL EXAMINATION: VITAL SIGNS: Blood pressure 164/105. Current weight 135.8 pounds at 4 feet 11 inches. CHEST: Clear. Good breath sounds bilaterally. HEART: Regular, no murmurs. EXTREMITIES: No lower extremity edema and negative Homans sign. HEENT: No scleral icterus. NECK: No cervical lymphadenopathy. ABDOMEN: Soft, nontender, and nondistended. BREASTS: Bilateral fibrocystic breast with two small, well-circumscribed nodules, one at approximately 12 o'clock position at the edge of the nipple areolar complex and another one approximately 2 cm from the nipple areolar complex at approximately the 11 o'clock position, which are tender to palpation. There is no axillary lymphadenopathy. ASSESSMENT AND PLAN: A 41-year-old female with two lesions of the right breast. These lesions were detected by mammography and are symptomatic and we will schedule her for either a stereotactic or ultrasound-guided biopsy for tissue diagnosis and then proceed with recommendations from that point further. Job ID: [id number] DocumentID: [id number] Dictated Date: 12/28/2021 15:56:27 Insurance Specialist Date: 12/28/2021 16:45:37 Dictated By: FEROZ WALSH MD
[~2022-01-19] VITALS: Ht 149.9 cm; Wt 61.8 kg
[~2022-01-19] MED LIST changes: +LIDOCAINE 1% INJ 10 ML VIAL INJ ONE
--- NOTE | 2022-01-19 15:56 | Diagnostic Imaging Report ---
INDICATION: Right breast masses. Patient presents for ultrasound guided biopsy. DETAILS OF THE PROCEDURE: The patient was brought to the sonographic suite and placed on the table in the supine position. Ultrasound imaging of the right breast was performed to evaluate for an appropriate entry site. The right breast was then prepped and draped in the usual sterile fashion. A small amount of 1% lidocaine was utilized for local anesthesia. A total of 4 passes was made into the lobulated solid mass at the 9 o'clock location of the right breast 3 cm from the nipple utilizing a 14-gauge Achieve needle. A marker clip was then deployed. Hemostasis was obtained using manual compression. The patient tolerated the procedure well. IMPRESSION: Successful ultrasound guided core biopsy of the lobulated solid mass at the 9 o'clock location of the right breast 3 cm from the nipple. Pathology results are currently pending. Dictated by: Dictated on workstation # [id number]
--- NOTE | 2022-01-19 15:58 | Diagnostic Imaging Report ---
INDICATION: Right breast mass. EXAMINATION: Patient presents for ultrasound-guided core biopsy. PROCEDURE: Patient was brought to the sonographic suite and placed on table in the supine position. Ultrasound imaging of the right breast was performed to evaluate appropriate entry site. Right breast was prepped and draped in the usual sterile fashion. Small amount of 1% lidocaine was utilized for local anesthesia. Total of three core biopsies were made of the solid mass at the 11:00 location in right breast utilizing a 14-gauge Achieve needle. A marker clip was then deployed. Hemostasis was obtained using manual compression. Patient tolerated the procedure well and was sent for post procedure mammogram in satisfactory condition. IMPRESSION: Successful ultrasound-guided core biopsy of the solid mass in the 11:00 location of right breast. Pathology results are currently pending. Dictated by: Dictated on workstation # [id number]
--- NOTE | 2022-01-19 16:33 | Diagnostic Imaging Report ---
INDICATION: Right breast nodules, status post ultrasound-guided core biopsy. Unilateral right 2-D CC and ML mammography was performed after patient underwent ultrasound-guided biopsy. Marker clips were located upper slightly inner right breast at mid depth as well as in the outer right breast at mid to posterior depth. IMPRESSION: Marker clip placements, status post ultrasound guided core biopsy of the 9 and 11 o'clock lesions. Dictated by: Dictated on workstation # [id number]
== END ==
LOC: RAD 13:17
PROVIDERS: ATTEND Surgery
DX: N63.15 Unspecified lump in the right breast, overlapping quadrants (principal); N63.11 Unspecified lump in the right breast, upper outer quadrant
CPT/HCPCS: 19083; 19084; 77065; G0279

== ENCOUNTER 2022-05-05 22:08 | Emergency (ER) | payer MEDICAID ==
[~2022-05-05 22:08] MED LIST changes: +ALBU8.5H6 IH; -LIDOCAINE 1% INJ 10 ML VIAL INJ ONE; -RT-ALBUINH IH
[2022-05-05] MEDS ORDERED: morphine INJ 10 MG/ML 1ML (SYR OR VIAL) IVP STA ×2 (22:20→23:59)
[2022-05-05] MEDS ORDERED: DICYCLOMINE 10 MG/ML (BENTYL) 2 ML AMP IM STA (22:20)
[2022-05-05] MEDS ORDERED: PANTOPRAZOLE 40 MG (PROTONIX) VIAL IV STA (22:20)
[2022-05-05] MEDS ORDERED: NS IV 1000 ML 1,000 ML IV STA (22:20)
--- NOTE | 2022-05-05 22:28 | ED Abdominal Pain ---
General Chief Complaint: Abdominal/GI Problems Stated Complaint: ABD PAIN Nursing Triage Note: Pt brought in by ems with the complaint of abdominal pain. Pt was given 2.5mg of Compazine and 50mcg of Fentanyl en route to the ED. Pt states she has been vomiting green bile throughout the day. Pt states this vomiting and abdominal pain has been going on for about a year intermittently Source of Information: Patient, EMS, Old Records Exam Limitations: No Limitations History of Present Illness Date Seen by Provider: May 05, 2022 Time Seen by Provider: 22:12 Initial Comments 41-year-old female presenting with complaints of recurrent abdominal pain that has mostly epigastric and left-sided. She states the pain radiates to her back. She has been having this pain intermittently for more than a year. She has been seen in the emergency department as well as urgent care in the clinic. She states that no one has been able to tell her what the cause was or how to treat it. She has been on acid reducers and antispasmodic such as Bentyl and nausea medications without significant improvement. She states that when she has an episode like this she usually has about 5 days where she cannot keep anything down and she usually just stays in bed. She felt this episode coming on this am so she tried drinking more water and took a nap. When she woke up this evening the pain was severe and cramping and coming in waves. She checked with nurse line and they advised her to come be seen. She denies any change in the pain with eating or drinking. She has not had an EGD or any endoscopy to evaluate the pain. She denies any abdominal trauma. She has had a tubal ligation but no surgery on her gallbladder or appendix or colon. She denies having fever, chills, cough, congestion, shortness of breath, pain with urination, blood in her stools. She states that when she has an episode like this her stools become "clumpy" and then she has a period of time where she has constipation before returning to more normal stools. EMS was activated to bring her to the emergency department due to her severe pain tonight. From review of her electronic medical record she also has history of alcohol intoxication when she was evaluated for abdominal pain in August 2020. Timing/Duration: 4-6 Hours Severity/Quality: Severe, Cramping, Sharp, Stabbing Location: LUQ, LLQ, Epigastric Radiation: Back Activities at Onset: None Modifying Factors: Worsens With Analgesics (pain and nausea medicine from EMS helped some), Worsens With Palpation Associated Symptoms: Back Pain; No Chest Pain, No Diaphoresis, No Fever/Chills, No Fatigue, No Headache, No Heartburn; Nausea/Vomiting; No Rash, No Shortness of Air, No Swelling/Mass in Abdomen, No Syncope, No Weakness Allergies and Home Medications Allergies Coded Allergies: aspirin (Verified Allergy, Unknown, 08/24/19) naproxen (Verified Allergy, Unknown, 08/24/19) Patient Home Medication List Home Medication List Reviewed: Yes Albuterol Sulfate (Ventolin Hfa) 1 Puff Puff, 2 PUFF IH Q4H PRN for SHORTNESS OF BREATH, (Reported) Entered as Reported by: JUAN C LUONG on 08/26/19835 Biotin (Biotin) 800 Mcg Tablet, 800 MCG PO DAILY, (Reported) Entered as Reported by: JUAN C LUONG on 08/26/19835 Famotidine (Pepcid) 20 Mg Tablet, 20 MG PO BID Prescribed by: PAULA MITCHELL on 09/02/2016 Fluticasone Propionate (Flonase Allergy Relief) 9.9 Ml [place].susp, 1 SPRAY NS DAILY PRN for CONGESTION, (Reported) Entered as Reported by: JUAN C LUONG on 08/26/19 08 Hydrocodone/Acetaminophen (Hydrocodone-Acetamin 5-325 mg) 5 Mg-325 Mg Tablet, 1 TAB PO Q6H PRN for PAIN-SEVERE (8-10) Prescribed by: GOLDIE VITAL on 05/06/22 010 Lidocaine (Lidocaine Pain Relief) 1 Each Adh..patch, 1 EACH TP DAILY PRN for PAIN-BREAKTHROUGH, (Reported) Entered as Reported by: JUAN C LUONG on 08/26/19 08 Lisinopril/Hydrochlorothiazide (Lisinopril-Hctz 20-25 mg Tab) 1 Each Tablet, 1 EA PO 1400, (Reported) Entered as Reported by: KAILA SWANSON on 08/24/191945 Lorazepam (Ativan) 2 Mg Tablet, 2 MG PO Q4H Prescribed by: PAULA MITCHELL on 09/02/2016 Metoprolol Tartrate (Metoprolol Tartrate) 50 Mg Tablet, 50 MG PO BID, (Reported) Entered as Reported by: KAILA SWANSON on 08/24/191945 Multivitamin (Multivitamin) 1 Each Tablet, 1 EACH PO DAILY, (Reported) Entered as Reported by: JUAN C LUONG on 08/26/19 08 Omeprazole (Omeprazole) 40 Mg Capsule.dr, 40 MG PO DAILY PRN Prescribed by: PAULA MITCHELL on 09/02/2016 Ondansetron (Ondansetron Odt) 4 Mg Tab.rapdis, 4 MG PO Q6H Prescribed by: PAULA MITCHELL on 09/02/2016 Ondansetron (Ondansetron Odt) 4 Mg Tab.rapdis, 4 MG PO Q6H PRN for NAUSEA/VOMITING Prescribed by: GOLDIE VITAL on 05/06/22 010 Oxycodone HCl/Acetaminophen (Percocet 5-325 mg Tablet) 1 Each Tablet, 1 TAB PO Q4H Prescribed by: ROBIN ARRIOLA on 08/27/19 09 Vitamin E Acetate (Vitamin E) 200 Unit Capsule, 200 UNIT PO DAILY, (Reported) Entered as Reported by: JUAN C LUONG on 08/26/19 08 Review of Systems Review of Systems Constitutional: No chills, No fever EENTM: No Symptoms Reported Respiratory: No Symptoms Reported Cardiovascular: No Symptoms Reported Genitourinary: Denies Burning, Denies Discharge Musculoskeletal: back pain (epigastric pain radiates to her back) Skin: No rash Psychiatric/Neurological: Anxiety Endocrine: No Symptoms Reported Hematologic/Lymphatic: Denies Blood Clots Past Cxxutad-Mfxhgx-Btbycx Hx Patient Social History Tobacco Use?: No Use of E-Cig and/or Vaping dev: No Substance use?: No Alcohol Use?: Yes Alcohol Frequency: Daily Pt feels they are or have been: No Immunizations Up To Date Tetanus Booster (TDap): Unknown First/Initial COVID19 Vaccinat: Not currently vaccinated Seasonal Allergies Seasonal Allergies: No Past Medical History Surgery/Hospitalization HX: RA; Psoratic arthritis; Psoriasis; Graves Disease treated with radiation; HTN Surgeries: Yes (right leg w/ huyen) Orthopedic, Tubal Ligation Respiratory: Yes Asthma Currently Using CPAP: No Currently Using BIPAP: No Cardiac: Yes Hypertension Neurological: No [employer] History: Tubal Ligation Genitourinary: No Gastrointestinal: No Musculoskeletal: Yes Chronic Back Pain Endocrine: No HEENT: No Cancer: No Psychosocial: Yes Anxiety Integumentary: No Blood Disorders: No Physical Exam Vital Signs Vital Signs - First Documented 05/05/22 22:08 Temp 36.7 Pulse 126 Resp 20 B/P (MAP) 148/111 (123) Pulse Ox 96 O2 Delivery Room Air Capillary Refill : Less Than 3 Seconds Height/Weight/BMI Height: '" Weight: lbs. oz. kg; 27.50 BMI Method: General Appearance: mild distress HEENT: PERRL/EOMI, pharynx normal Neck: non-tender, full range of motion, supple, normal inspection Respiratory: chest non-tender, lungs clear, normal breath sounds, no respir atory distress, no accessory muscle use Cardiovascular: normal peripheral pulses, regular rate, rhythm Gastrointestinal: normal bowel sounds, soft, no pulsatile mass; No distended; guarding; No rebound; tenderness (epigastric and Left side of abdomen) Rectal: deferred Extremities: normal range of motion, non-tender, normal capillary refill Back: no CVA tenderness Neurologic/Psychiatric: alert, oriented x 3 Skin: normal color, warm/dry Progress/Results/Core Measures Results/Orders Lab Results Laboratory Tests Test 05/05/22 22:08 05/05/22 23:00 Range/Units White Blood Count 5.8 4.3-11.0 10^3/uL Red Blood Count 5.15 H 3.80-5.11 10^6/uL Hemoglobin 16.6 H 11.5-16.0 g/dL Hematocrit 46 35-52 % Mean Corpuscular Volume 90 80-99 fL Mean Corpuscular Hemoglobin 32 25-34 pg Mean Corpuscular Hemoglobin Concent 36 32-36 g/dL Red Cell Distribution Width 13.2 10.0-14.5 % Platelet Count 316 130-400 10^3/uL Mean Platelet Volume 8.5 L 9.0-12.2 fL Immature Granulocyte % (Auto) 0 % Neutrophils (%) (Auto) 31 L 42-75 % Lymphocytes (%) (Auto) 60 H 12-44 % Monocytes (%) (Auto) 7 0-12 % Eosinophils (%) (Auto) 2 0-10 % Basophils (%) (Auto) 1 0-10 % Neutrophils # (Auto) 1.8 1.8-7.8 10^3/uL Lymphocytes # (Auto) 3.5 1.0-4.0 10^3/uL Monocytes # (Auto) 0.4 0.0-1.0 10^3/uL Eosinophils # (Auto) 0.1 0.0-0.3 10^3/uL Basophils # (Auto) 0.1 0.0-0.1 10^3/uL Immature Granulocyte # (Auto) 0.0 0.0-0.1 10^3/uL Sodium Level 139 135-145 MMOL/L Potassium Level 3.2 L 3.6-5.0 MMOL/L Chloride Level 100 98-107 MMOL/L Carbon Dioxide Level 23 21-32 MMOL/L Anion Gap 16 H 5-14 MMOL/L Blood Urea Nitrogen 7 7-18 MG/DL Creatinine 0.62 0.60-1.30 MG/DL Estimat Glomerular Filtration Rate 113 BUN/Creatinine Ratio 11 Glucose Level 121 H 70-105 MG/DL Calcium Level 9.5 8.5-10.1 MG/DL Corrected Calcium 9.3 8.5-10.1 MG/DL Total Bilirubin 0.2 0.1-1.0 MG/DL Aspartate Amino Transf (AST/SGOT) 35 H 5-34 U/L Alanine Aminotransferase (ALT/SGPT) 20 0-55 U/L Alkaline Phosphatase 98 40-136 U/L Total Protein 7.9 6.4-8.2 GM/DL Albumin 4.3 3.2-4.5 GM/DL Lipase 40 8-78 U/L Serum Test, Qualitative NEGATIVE NEGATIVE Salicylates Level 1.1 L 5.0-20.0 MG/DL Acetaminophen Level < 10 L 10-30 UG/ML Serum Alcohol 192 H <10 MG/DL Urine Color YELLOW Urine Clarity CLEAR Urine pH 6.0 5-9 Urine Specific [place] <=1.005 1.016-1.022 Urine Protein NEGATIVE NEGATIVE Urine Glucose (UA) NEGATIVE NEGATIVE Urine Ketones NEGATIVE NEGATIVE Urine Nitrite NEGATIVE NEGATIVE Urine Bilirubin NEGATIVE NEGATIVE Urine Urobilinogen 0.2 < = 1.0 MG/DL Urine Leukocyte Esterase NEGATIVE NEGATIVE Urine RBC (Auto) NEGATIVE NEGATIVE Urine RBC NONE /HPF Urine WBC RARE /HPF Urine Squamous Epithelial Cells 5-10 /HPF Urine Crystals NONE /LPF Urine Bacteria FEW H /HPF Urine Casts NONE /LPF Urine Mucus SMALL H /LPF Urine Other MOD CLUE CELLS NOTED /HPF Urine Culture Indicated NO Urine Opiates Screen POSITIVE H NEGATIVE Urine Oxycodone Screen NEGATIVE NEGATIVE Urine Methadone Screen NEGATIVE NEGATIVE Urine Propoxyphene Screen NEGATIVE NEGATIVE Urine Barbiturates Screen NEGATIVE NEGATIVE Ur Tricyclic Antidepressants Screen NEGATIVE NEGATIVE Urine Phencyclidine Screen NEGATIVE NEGATIVE Urine Amphetamines Screen NEGATIVE NEGATIVE Urine Methamphetamines Screen NEGATIVE NEGATIVE Urine Benzodiazepines Screen NEGATIVE NEGATIVE Urine Cocaine Screen NEGATIVE NEGATIVE Urine Cannabinoids Screen NEGATIVE NEGATIVE My Orders Orders - GOLDIE VITAL MD Ua Culture If Indicated (05/05/22 22:19) Cbc With Automated Diff (05/05/22 22:19) Comprehensive Metabolic Panel (05/05/22 22:19) Alcohol (05/05/22 22:19) Drug Screen Stat (Urine) (05/05/22 22:19) Acetaminophen (05/05/22 22:19) Salicylate (05/05/22 22:19) Ekg Tracing (05/05/22 22:19) Ed Iv/Invasive Line Start (05/05/22 22:19) Monitor-Rhythm Ecg Trace Only (05/05/22 22:19) Lipase (05/05/22 22:19) Ct Abdomen/Pelvis W (05/05/22 22:19) Hcg,Qualitative Serum (05/05/22 22:19) Ns Iv 1000 Ml (Sodium Chloride 0.9%) (05/05/22 22:20) Pantoprazole Injection (Protonix Injecti (05/05/22 22:20) Morphine Injection (Morphine Injection (05/05/22 22:20) Dicyclomine Injection (Bentyl Injection) (05/05/22 22:20) Iohexol Injection (Omnipaque 350 Mg/Ml 1 (05/05/22 22:45) Received Contrast (Hold Metformin- Contr (05/05/22 22:45) Sodium Chloride Flush (Catheter Flush Sy (05/05/22 22:45) Ns (Ivpb) (Sodium Chloride 0.9% Ivpb Bag (05/05/22 22:45) Morphine Injection (Morphine Injection (05/05/22 23:59) Rx-Ondansetron Po (Rx-Zofran Po) (05/06/22 01:00) Rx-Hydrocodone/Apap 5-325 Mg (Rx-Vicodin (05/06/22 01:00) Iohexol Injection (Omnipaque 350 Mg/Ml 1 (05/06/22 01:00) Received Contrast (Hold Metformin- Contr (05/06/22 01:00) Sodium Chloride Flush (Catheter Flush Sy (05/06/22 01:00) Ns (Ivpb) (Sodium Chloride 0.9% Ivpb Bag (05/06/22 01:00) Medications Given in ED Current Medications Medications Dose Ordered Sig/[place] Route Start Time Stop Time Status Last Admin Dose Admin Acetaminophen/ Hydrocodone Bitart 1 ea Q6H PRN PO 05/06/22 01:00 05/06/22 01:09 DC 05/06/22 01:02 1 EA Iohexol 100 ml ONCE ONCE IV 05/05/22 22:45 05/05/22 22:47 DC 05/05/22 23:01 100 ML Ondansetron HCl 4 mg Q6H PRN PO 05/06/22 01:00 05/06/22 01:09 DC 05/06/22 01:02 4 MG Sodium Chloride 10 ml NEEDED PRN IV 05/05/22 22:45 05/06/22 01:09 DC 05/05/22 23:01 10 ML Sodium Chloride 100 ml ONCE ONCE IV 05/05/22 22:45 05/05/22 22:47 DC 05/05/22 23:01 100 ML Vital Signs/I&O 05/05/22 05/06/22 22:08 01:02 Temp 36.7 Pulse 126 107 Resp 20 18 B/P (MAP) 148/111 (123) 154/106 Pulse Ox 96 96 O2 Delivery Room Air Room Air 05/06/22 00:00 Intake Total 1000 ml Balance 1000 ml Blood Pressure Mean: 123 Progress Progress Note #1: Progress Note Order CBC, chemistry, urinalysis, urine drug screen, alcohol, acetaminophen, salicylate levels. CT scan of the abdomen and pelvis with IV contrast to evaluate for potential life threatening diagnosis such as colitis, bowel obstruction, diverticulitis, abdominal mass, perforated ulcer, free air. Give normal saline 1 L IV fluid bolus for hydration, morphine 4 mg IV for pain, Bentyl 20 mg IM for spasms and cramping with nausea. Patient reports that the fentanyl and Compazine given by EMS had helped with her nausea and some with her pain. She is tearful and frustrated saying that she always gets at home when she comes in with her complaints and no one can tell her what was causing her symptoms. She has a history of alcohol abuse according to her chart and could certainly be having some alcohol gastritis or pancreatitis. Other life- threatening potential diagnoses would be bowel obstruction, perforated ulcer, diverticulitis, abdominal mass, colitis. Progress Note #2: Time: 22:34 Progress Note Although patient reported that she had taken Bentyl previously for her symptoms when the nurse went to administer a dose here in the ED she refused it stating that it caused her to hallucinate and she did not want to take the medicine. She was okay with getting the narcotic pain medicine and IV fluids. Progress Note #3: Time: 23:47 Progress Note Patient reports mild improvement in her symptoms with the morphine and IV fluids and treatment in the ED. Will repeat additional morphine 4 mg IV to try and improve her pain. Counseled on findings of labs showing stable CBC without elevated white blood cell count or anemia. Her chemistry panel was not showing acute electrolyte imbalance, renal failure, liver failure, elevation of her lipase. Serum hCG was negative. On my review of her CT scan of the abdomen and pelvis with IV contrast she has inflammation and cystic structures in the head and tail of her pancreas. I did not appreciate any hemorrhage or free air. Awaiting official radiology report. [address] reading from [facility] radiology of her CT scan of the abdomen and pelvis with IV contrast came across on fax showing the radiologist saw moderate pancreatitis with encapsulated fluid collection likely a pseudocyst adjacent to the tail of the pancreas as well as a cystic mass or fluid collection in the body of the pancreas and probable mild ileus. She had some narrowing of the splenic vein likely associated with pancreatic inflammatory process but portal vein was patent. No obvious gallstones or obstruction. Appendix was normal. With the findings of pancreatitis including pseudocyst and cyst of her pancreas although her lipase and LFTs were normal as well as her CBC I did discuss the case with the on-call doctor for [facility], Dr. Joseph. Discussed lab findings and physical exam as well as CT report. Reviewed with her about continued pain and alcohol intoxication to discuss possible admission for gentle hydration and bowel rest as well as pain and nausea control. Dr. Joseph recommended that if she did require admission to see about possible transfer to a larger facility that would have GI services available. When I reviewed these findings with the patient and discussed admission patient reported that she was having improved pain and felt like she could go home. She was grateful that she had more of an answer about what was causing her pain. Advised to be strict about avoiding alcohol as it could increase her symptoms and worsen her pancreatitis. Counseled on strict return precautions of worsening pain, uncontrolled vomiting, fever over 101 Fahrenheit to be seen right away. Otherwise check with the clinic about obtaining GI referral and possible outpatient testing of the pancreas such as an MRI or ultrasound. Patient did not feel that she needed to be admitted at this point since her symptoms were improving and she again felt relieved that she had more of an answer of what was causing her pain. She voiced understanding of the need to see a GI specialist about her pancreas. Will discharge with a few hydrocodone as well as Zofran to help with nausea and pain. Prescribed additional hydrocodone and Zofran through the pharmacy. Stressed importance of avoiding a lcohol. Follow a liquid diet for the next 24 to 48 hours. Advance her diet as tolerated after that. Since the CT was not showing signs of internal bleeding or necrosis with the pancreas and she had normal lipase and LFTs, was felt safe to discharge her home with symptomatic care and strict return precautions. Patient was agreeable with this and felt like she did not require admission to the hospital at this point. Initial ECG Impression Date: May 05, 2022 Initial ECG Impression Time: 22:26 Initial ECG Rate: 101 Initial ECG Rhythm: S.Tach Initial ECG Comparisson: No Previous ECG Available Comment On my personal review and interpretation her electrocardiogram shows sinus tachycardia with a heart rate of 101 bpm. She has no acute ST elevation. MD interval 137 ms. QT interval 356 ms with a QTc interval of 414 ms. She has some voltage criteria for consideration of LVH. She has no prior tracing available for comparison. Diagnostic Imaging Diagonstic Imaging: CT Plain Films/CT/US/NM/MRI: abdomen, pelvis Comments Preliminary reading from Dr. Kaila Cramer MD at [id number] and faxed results at [id number]. CT abdomen and pelvis with IV contrast Impression: 1. Moderate pancreatitis with encapsulated fluid collection, likely pseudocyst adjacent to the tail of the pancreas measuring approximately 3.8 cm x 5.8 cm x 4.7 cm. There is some free fluid traveling into the left upper quadrant adjacent to the splenic flexure of the colon at the spleen. Splenic flexure is mildly thick-walled but this may be reactive to the pancreatic inflammatory process rather than primary colitis. 2. There is some circumferential moderate narrowing of the splenic vein which is likely associated with the pancreatic inflammatory process surrounding the tail of the pancreas. Portal vein is patent. 3. There is a cystic mass or fluid collection in the body of the pancreas measuring 1.3 cm x 1.7 cm x 1.1 cm. 4. Probable mild ileus. 5. Appendix is normal. Uterus and urinary bladder are unremarkable. There is no common bile duct dilation or evidence of stone or obstruction. Reviewed: Reviewed [place] Study, Reviewed by Me Departure Impression Primary Impression: Acute on chronic pancreatitis Additional Impressions: Abdominal pain, chronic, epigastric Abdominal pain, chronic, left lower quadrant Abdominal pain, chronic, left upper quadrant Alcohol intoxication Qualified Codes: F10.929 - Alcohol use, unspecified with intoxication, unspecified Cyst and pseudocyst of pancreas Disposition: HOME, SELF-CARE Condition: Improved Departure-Patient Inst. Decision time for Depature: 01:00 Referrals: VALORIE CORREA,LOCAL PHYSICIAN (PCP) [place] Care Physician [facility] [place] Instructions: Alcohol Intoxication ED, Chronic Pancreatitis (DC), Full Liquid Diet, Gastritis ED Add. Discharge Instructions: Follow a liquid diet for at least 24 hours to allow your stomach and pancreas to rest. This should help with the inflammation and pain. The strong pain medicine to help with severe pain. This can cause constipation so consider taking MiraLAX [id number] to help counteract the constipating effect of the narcotic. Use the nausea medicine to help keep your stomach settled so that you can drink and stay hydrated. Avoid alcohol as well worsen the pancreatitis and can flareup your pain. Follow-up through the clinic to have further evaluation of the pancreas and the cyst and pseudocyst of the pancreas. You would need referred to a GI specialist and may need an MRI or ultrasound of the pancreas as well. If your symptoms worsen and you cannot control your pain, have uncontrolled vomiting, develop a fever over 101 Fahrenheit then you should return or be seen right away as needed to be transferred to a hospital that has GI services such as the facilities in [place] or [place]. All discharge instructions reviewed with patient and/or family. Voiced understanding. Scripts Ondansetron (Ondansetron Odt) 4 Mg Tab.rapdis 4 MG PO Q6H PRN for NAUSEA/VOMITING for 4 Days, #16 TAB 0 Refills Prov: GOLDIE VITAL MD 05/06/22 Hydrocodone/Acetaminophen (Hydrocodone-Acetamin 5-325 mg) 5 Mg-325 Mg Tablet 1 TAB PO Q6H PRN for PAIN-SEVERE (8-10) for 4 Days, #16 TAB 0 Refills Prov: GOLDIE VITAL MD 05/06/22 Work/School Note: Family Work Note Patient Received Medical Care In the Emergency Department On: May 05, 2022 Patient Will Be Able to Return to Work/School On: May 09, 2022 Patient Restrictions: Please excuse her daughter from school 05/06/2022 GOLDIE VITAL MD May 05, 2022 22:28
[2022-05-05 22:29] LABS: BASOPHILS # (AUTO) 0.1 10^3/uL (0.0-0.1); BASOPHILS % (AUTO) 1 % (0-10); EOSINOPHILS # (AUTO) 0.1 10^3/uL (0.0-0.3); EOSINOPHILS % (AUTO) 2 % (0-10); HEMATOCRIT 46 % (35-52); HEMOGLOBIN 16.6 g/dL (11.5-16.0); LYMPHOCYTES # (AUTO) 3.5 10^3/uL (1.0-4.0); LYMPHOCYTES % (AUTO) 60 % (12-44); MEAN CORPUSCULAR HEMOGLOBIN 32 pg (25-34); MEAN CORPUSCULAR HGB CONC 36 g/dL (32-36); MEAN CORPUSCULAR VOLUME 90 fL (80-99); MEAN PLATELET VOLUME 8.5 fL (9.0-12.2); MONOCYTES # (AUTO) 0.4 10^3/uL (0.0-1.0); MONOCYTES % (AUTO) 7 % (0-12); NEUTROPHILS # (AUTO) 1.8 10^3/uL (1.8-7.8); NEUTROPHILS % (AUTO) 31 % (42-75); PLATELET COUNT 316 10^3/uL (130-400); WHITE BLOOD COUNT 5.8 10^3/uL (4.3-11.0)
[2022-05-05 22:45] LABS: ALANINE AMINOTRANSFERASE 20 U/L (0-55); ALBUMIN 4.3 GM/DL (3.2-4.5); ALKALINE PHOSPHATASE 98 U/L (40-136); BILIRUBIN,TOTAL 0.2 MG/DL (0.1-1.0); BUN/CREATININE RATIO 11; CALCIUM 9.5 MG/DL (8.5-10.1); CARBON DIOXIDE 23 MMOL/L (21-32); CHLORIDE 100 MMOL/L (98-107); CREATININE SERUM 0.62 MG/DL (0.60-1.30); GFR ESTIMATED 113; GLUCOSE 121 MG/DL (70-105); POTASSIUM 3.2 MMOL/L (3.6-5.0); SALICYLATE 1.1 MG/DL (5.0-20.0); SODIUM 139 MMOL/L (135-145); TOTAL PROTEIN 7.9 GM/DL (6.4-8.2)
[2022-05-05] MEDS ORDERED: CATHETER FLUSH 10 ML SYR IV PRN (22:45)
[2022-05-05] MEDS ORDERED: IOHEXOL 350 MG/ML 100 ML (OMNIPAQUE 350) VIAL IV ONE (22:45)
[2022-05-05] MEDS ORDERED: HOLD METFORMIN - RECEIVED CONTRAST 20 ML VIAL IV SCH (22:45)
[2022-05-05] MEDS ORDERED: NS 100 ML (IVPB) BAG IV ONE (22:45)
[2022-05-05 22:46] LABS: ACETAMINOPHEN < 10 UG/ML (10-30)
[2022-05-05 23:19] LABS: BILIRUBIN,URINE NEGATIVE (NEGATIVE); CLARITY,URINE CLEAR; COLOR,URINE YELLOW; GLUCOSE, URINE (UA) NEGATIVE (NEGATIVE); KETONES,URINE NEGATIVE (NEGATIVE); LEUKOCYTE ESTERASE ,URINE NEGATIVE (NEGATIVE); NITRITE,URINE NEGATIVE (NEGATIVE); PROTEIN,URINE NEGATIVE (NEGATIVE)
[2022-05-05 23:28] LABS: BACTERIA,URINE FEW /HPF; WBC,URINE RARE /HPF
[2022-05-05 23:29] LABS: URINE OTHER MOD CLUE CELLS NOTED /HPF
[2022-05-05 23:30] LABS: AMPHETAMINE SCREEN, URINE NEGATIVE (NEGATIVE); BARBITURATE SCREEN URINE NEGATIVE (NEGATIVE); BENZODIAZEPINES SCREEN URINE NEGATIVE (NEGATIVE); CANNABINOID SCREEN, URINE NEGATIVE (NEGATIVE); COCAINE SCREEN URINE NEGATIVE (NEGATIVE); METHADONE STAT NEGATIVE (NEGATIVE); OPIATE SCREEN URINE POSITIVE (NEGATIVE); OXYCODONE STAT NEGATIVE (NEGATIVE); PROPOXYPHENE STAT NEGATIVE (NEGATIVE); TRICYCLIC ANTIDEPRESSANTS SCRE NEGATIVE (NEGATIVE)
[2022-05-06] MEDS ORDERED: RX-ONDANSETRON 4 MG ODT (ZOFRAN) PPK #4 PO PRN (01:00)
[2022-05-06] MEDS ORDERED: CATHETER FLUSH 10 ML SYR IV PRN (01:00)
[2022-05-06] MEDS ORDERED: NS 100 ML (IVPB) BAG IV ONE (01:00)
[2022-05-06] MEDS ORDERED: HOLD METFORMIN - RECEIVED CONTRAST 20 ML VIAL IV SCH (01:00)
[2022-05-06] MEDS ORDERED: IOHEXOL 350 MG/ML 100 ML (OMNIPAQUE 350) VIAL IV ONE (01:00)
[2022-05-06 01:02] VITALS: BP 154/106
[2022-05-06] MEDS ORDERED: ACHD5005 PO (01:06)
[2022-05-06] MEDS ORDERED: ONDA4TAB11 PO (01:06)
--- NOTE | 2022-05-06 05:46 | Diagnostic Imaging Report ---
PROCEDURE: CT abdomen and pelvis with contrast. TECHNIQUE: Multiple contiguous axial images were obtained through the abdomen and pelvis after administration of intravenous contrast. Auto Exposure Controls were utilized during the CT exam to meet ALARA standards for radiation dose reduction. All CT scans use one or more of the following dose optimizing techniques: automated exposure control, MA and/or KvP adjustment based on patient size and exam type or iterative reconstruction. INDICATION: 41-year-old female presents with epigastric pain with left-sided abdominal pain, nausea and vomiting. COMPARISONS: 09/01/2020 FINDINGS: There is some scarring seen in the left lung base. There is no consolidation, effusion or pneumothorax. Cardiac contour is normal. Liver shows uniform attenuation. Gallbladder shows a prominent phrygian cap, but there is no radiopaque stones, sludge, wall thickening or pericholecystic fluid. Spleen and GE junction are normal. Stomach shows some prominence of the antral mucosa and pylorus. Duodenal sweep is unremarkable. There is peripancreatic stranding as well as organized collection extending from the pancreatic tail measuring approximately 5.3 cm x 3.8 cm suggesting a complex pseudocyst versus a contained abscess. Associated underlying cystic mass is not excluded. This contained collection surrounds the course of the splenic vein which is diminutive. There is no evidence of splenic or portal vein thrombosis. Kidneys appear normal in size, position and contour with symmetrical perfusion of contrast. Both ureters are seen intermittently through their course and appear unremarkable. Filled bladder is normal. Multiple pelvic phleboliths are seen. Uterus and adnexa are grossly unremarkable. Nonopacified loops of small bowel show some fluid-filled loops with air-fluid levels with minimal distention. Appendix is unremarkable. Large bowel contains some liquid stool and gas. Visualized vasculature shows normal caliber of aorta, iliac and femoral arteries with normal origin of the visceral arteries. Bone windows show no overall gross abnormalities. There is a vacuum disc at L4-L5 with some disc bulging seen at L3-L4, L4-L5 and L5-S1. IMPRESSION: 1. There is peripancreatic stranding. In addition, there is walled off collection of fluid extending from the pancreatic tail with measurements given above. Acute pancreatitis with pseudocyst and/or changes of early necrotizing pancreatitis with infection. An underlying cystic mass in the pancreatic tail is not excluded. Short-term follow-up to resolution is recommended. 2. Small bowel ileus. 3. No evidence of cholecystitis or appendicitis or obstructive uropathy. 4. There is disc degeneration with disc bulging at L3-L4 through L5-S1 with some vacuum disc at L4-L5. Agree with [facility] report. Dictated by: Dictated on workstation # [id number]
== END 2022-05-06 01:09 | disposition home or self-care (01) ==
LOC: ER FS 22:08 → EDUNIT# 22:12 → ER FS 05-06 01:09
DX: K86.1 Other chronic pancreatitis (principal); K86.3 Pseudocyst of pancreas; F10.129 Alcohol abuse with intoxication, unspecified; R10.32 Left lower quadrant pain; G89.29 Other chronic pain; Z32.02 Encounter for pregnancy test, result negative; Z28.310 Unvaccinated for COVID-19; Y90.6 Blood alcohol level of 120-199 mg/100 ml
CPT/HCPCS: 36415; 74177; 80053; 80306; 81000; 83690; 84703; 85025; 93005; 93041; 99284; G0480 ×3; 80320; 80329

== ENCOUNTER 2023-01-09 06:05 | Emergency (ER) | payer MEDICAID ==
[~2023-01-09] VITALS: Ht 149.8 cm; Wt 59.0 kg
[~2023-01-09 06:05] MED LIST changes: +ACHD5005 PO
--- NOTE | 2023-01-09 06:12 | ED Fall/Injury ---
General Stated Complaint: LEFT HIP INJ History of Present Illness Date Seen by Provider: Jan 09, 2023 Time Seen by Provider: 06:10 Initial Comments 42 yr F is here with complaints of left hip and left buttock pain after her desk chair with wheels rolled away and she fell on the floor around 8 PM last night. Patient is able to walk and stand, but it is painful. Patient rates the pain 8/10. Denies head strike, dizziness, loss of consciousness. Allergies and Home Medications Allergies Coded Allergies: aspirin (Verified Allergy, Unknown, 08/24/19) naproxen (Verified Allergy, Unknown, 08/24/19) Patient Home Medication List Home Medication List Reviewed: Yes Albuterol Sulfate (Ventolin Hfa) 1 Puff Puff, 2 PUFF IH Q4H PRN for SHORTNESS OF BREATH, (Reported) Entered as Reported by: JUAN C LUONG on 08/26/19835 Biotin (Biotin) 800 Mcg Tablet, 800 MCG PO DAILY, (Reported) Entered as Reported by: JUAN C LUONG on 08/26/19835 Famotidine (Pepcid) 20 Mg Tablet, 20 MG PO BID Prescribed by: PAULA MITCHELL on 09/02/2016 Fluticasone Propionate (Flonase Allergy Relief) 9.9 Ml [place].susp, 1 SPRAY NS DAILY PRN for CONGESTION, (Reported) Entered as Reported by: JUAN C LUONG on 08/26/19836 Hydrocodone/Acetaminophen (Hydrocodone-Acetamin 5-325 mg) 5 Mg-325 Mg Tablet, 1 TAB PO Q6H PRN for PAIN-SEVERE (8-10) Prescribed by: GOLDIE VITAL on 05/06/22 010 Lidocaine (Lidocaine Pain Relief) 1 Each Adh..patch, 1 EACH TP DAILY PRN for PAIN-BREAKTHROUGH, (Reported) Entered as Reported by: JUAN C LUONG on 08/26/19835 Lisinopril/Hydrochlorothiazide (Lisinopril-Hctz 20-25 mg Tab) 1 Each Tablet, 1 EA PO 1400, (Reported) Entered as Reported by: KAILA SWANSON on 08/24/191945 Lorazepam (Ativan) 2 Mg Tablet, 2 MG PO Q4H Prescribed by: PAULA MITCHELL on 09/02/2016 Metoprolol Tartrate (Metoprolol Tartrate) 50 Mg Tablet, 50 MG PO BID, (Reported) Entered as Reported by: KAILA SWANSON on 08/24/191945 Multivitamin (Multivitamin) 1 Each Tablet, 1 EACH PO DAILY, (Reported) Entered as Reported by: JUAN C LUONG on 08/26/19 0836 Omeprazole (Omeprazole) 40 Mg Capsule.dr, 40 MG PO DAILY PRN Prescribed by: PAULA MITCHELL on 09/02/2016 Ondansetron (Ondansetron Odt) 4 Mg Tab.rapdis, 4 MG PO Q6H Prescribed by: PAULA MITCHELL on 09/02/2016 Ondansetron (Ondansetron Odt) 4 Mg Tab.rapdis, 4 MG PO Q6H PRN for NAUSEA/VOMITING Prescribed by: GOLDIE VITAL on 05/06/22 010 Oxycodone HCl/Acetaminophen (Percocet 5-325 mg Tablet) 1 Each Tablet, 1 TAB PO Q4H Prescribed by: ROBIN ARRIOLA on 08/27/19 09 Vitamin E Acetate (Vitamin E) 200 Unit Capsule, 200 UNIT PO DAILY, (Reported) Entered as Reported by: JUAN C LUONG on 08/26/19 0836 Review of Systems Review of Systems Constitutional: no symptoms reported Eyes: No Symptoms Reported Ears, Nose, Mouth, Throat: no symptoms reported Respiratory: no symptoms reported Cardiovascular: no symptoms reported Gastrointestinal: no symptoms reported Genitourinary: no symptoms reported Musculoskeletal: see HPI, joint pain, muscle pain Skin: no symptoms reported Psychiatric/Neurological: No Symptoms Reported Past Bgyweeu-Ikqpyk-Eqmlnp Hx Immunizations Up To Date Tetanus Booster (TDap): Unknown First/Initial COVID19 Vaccinat: Not currently vaccinated Seasonal Allergies Seasonal Allergies: No Past Medical History Surgery/Hospitalization HX: RA; Psoratic arthritis; Psoriasis; Graves Disease treated with radiation; HTN Surgeries: Yes (right leg w/ huyen) Orthopedic, Tubal Ligation Respiratory: Yes Asthma Currently Using CPAP: No Currently Using BIPAP: No Cardiac: Yes Hypertension Neurological: 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 oz. kg; 27.50 BMI Method: General Appearance: WD/WN, mild distress HEENT: PERRL/EOMI Neck: non-tender, full range of motion, supple Back: normal inspection, no CVA tenderness, no vertebral tenderness Extremities: normal range of motion, normal inspection, other (Left hip: Range of movement restricted due to pain. No shortening of the left lower extremity. Tenderness present over the buttocks and near the left side of the sacrum) Neurologic/Psychiatric: no motor/sensory deficits, alert, oriented x 3 Skin: normal color Progress/Results/Core Measures Results/Orders My Orders Orders - NOLVIA FIGUEROA MD Pelvis With Left Hip 2-3 View (01/09/23 06:12) Sacrum & Coccyx (01/09/23 06:12) Oxycodone/Apap 5/325mg Tablet (Oxycodon (01/09/23 06:30) Medications Given in ED Current Medications Medications Dose Ordered Sig/Louis Route Start Time Stop Time Status Last Admin Dose Admin Oxycodone/ Acetaminophen 1 tab ONCE ONCE PO 01/09/23 06:30 01/09/23 06:31 DC 01/09/23 06:28 1 TAB Vital Signs/I&O 01/09/23 06:07 Temp 36.7 Pulse 100 Resp 16 B/P (MAP) 148/90 (109) Pulse Ox 97 O2 Delivery Room Air Progress Progress Note : Progress Note 1. FALL/ LEFT NONDISPLACED SACRAL FRACTURE: - XR PELVIS AND LEFT HIP/ SACRUM: fracture seen on left sacrum, nondisplaced, hip: no fracture or dislocation, x-ray read by me - Percocet ,1 tab given in ER - Percocet prescription to be taken 1 tab, every 6 hours, as needed for pain - Lidoderm patches advised - Advised ice application - Follow up wit Ortho in 3 to 7 days - Crutches given in ER Departure Impression Primary Impression: Sacral fracture, closed Qualified Codes: S32.10XA - Unspecified fracture of sacrum, initial encounter for closed fracture Disposition: HOME, SELF-CARE Condition: Stable Departure-Patient Inst. Referrals: JULEE HAINES APRN (PCP) Primary Care Physician ROBIN ARRIOLA MD Patient Instructions: Coccyx Fracture (DC), Pelvic fracture Add. Discharge Instructions: - Percocet prescription to be taken 1 tab, every 6 hours, as needed for pain - Lidoderm patches advised - Advised ice application - Follow up wit Ortho in 3 to 7 days - Crutches given in ER Scripts Lidocaine (Lidocaine) 4 % Adh..patch 1 EACH TP DAILY for 5 Days, #5 PATCH Prov: NOLVIA FIGUEROA MD 01/09/23 NOLVIA FIGUEROA MD Jan 09, 2023 06:12
[2023-01-09] MEDS ORDERED: oxyCODONE/ACETAMINOPHEN 5/325MG TABLET PO ONE (06:30)
[2023-01-09] MEDS ORDERED: OXYC1TAB87 PO ×2 (07:02→07:22)
[2023-01-09] MEDS ORDERED: LIDO1ADH78 TP (07:02)
[2023-01-09 07:21] VITALS: BP 148/90
--- NOTE | 2023-01-09 07:31 | Diagnostic Imaging Report ---
EXAMINATION: Radiographs of the sacrum and coccyx, 3 views. COMPARISON: None. HISTORY: 42-year-old female, fall. Sacral and coccygeal pain. FINDINGS: The pubic symphysis and sacroiliac joints are normally aligned. There is no radiographically apparent fracture of the sacrum or coccyx. There are facet degenerative changes at L4-L5 and L5-S1. IMPRESSION: 1. No radiographically apparent fracture of the sacrum or coccyx. 2. Facet degenerative changes at L4-L5 and L5-S1. Dictated by: Dictated on workstation # [id number]
--- NOTE | 2023-01-09 07:32 | Diagnostic Imaging Report ---
EXAMINATION: Pelvis, single view. Left hip, 2 views. COMPARISON: None. HISTORY: 42-year-old female, fall. Pelvic and left hip pain. FINDINGS: The pubic symphysis and sacroiliac joints are normally aligned. There are facet degenerative changes at L4-L5 and L5-S1. The right hip is not dislocated. The left hip is not dislocated. There is no joint space loss of either hip, osteophyte formation, or subchondral cystic change. There is no identified acute fracture. IMPRESSION: 1. Unremarkable radiographic assessment of the hips and pelvis. 2. Facet degenerative changes at L4-L5 and L5-S1. Dictated by: Dictated on workstation # [id number]
== END 2023-01-09 07:30 | disposition home or self-care (01) ==
LOC: EDUNIT# 06:05 → ER FS 06:07
DX: S32.10XA Unspecified fracture of sacrum, initial encounter for closed fracture (principal); Z88.6 Allergy status to analgesic agent; Z28.310 Unvaccinated for COVID-19; W07.XXXA Fall from chair, initial encounter
CPT/HCPCS: 72220; 73502

== ENCOUNTER 2023-02-12 04:15 | Emergency (ER) | payer MEDICAID ==
[~2023-02-12] VITALS: Ht 149.8 cm; Wt 59.0 kg
[2023-02-12 04:15] VITALS: BP 157/108
[~2023-02-12 04:15] MED LIST changes: +LIDO1ADH78 TP
--- NOTE | 2023-02-12 04:35 | ED Psychosocial ---
General Chief Complaint: Suicidal Ideation Risk Stated Complaint: ALTERED MENTAL STATUS Source: patient Exam Limitations: no limitations (ESPERANZA WOODWARD DO) History of Present Illness Date Seen by Provider: Feb 12, 2023 Time Seen by Provider: 04:24 Initial Comments 42-year-old female presents to the emergency department via EMS for suicidal ideation. She states she has a longstanding history of psychiatric disorders and takes lorazepam. She used to take Seroquel and some other medications but she stopped taking those. She had an inpatient admission in 2029 but has not had any inpatient stay since that time. Today she states she is feeling better off and wishes she could fall asleep and does not wake up. She did try to harm herself by putting a bag over her head in an attempt to suffocate herself. She ultimately poked a hole in the back so she could breathe. She has a myriad of chronic medical concerns including chronic pancreatitis from alcohol, migraines, thyroid issues which further worsened her depression per her report. All other systems reviewed and negative except documented per HPI. Voice recognition software was used to help create this chart (ESPERANZA WOODWARD DO) Allergies and Home Medications Allergies Coded Allergies: aspirin (Verified Allergy, Unknown, 08/24/19) naproxen (Verified Allergy, Unknown, 08/24/19) Patient Home Medication List Home Medication List Reviewed: Yes (ESPERANZA WOODWARD DO) Albuterol Sulfate (Ventolin Hfa) 1 Puff Puff, 2 PUFF IH Q4H PRN for SHORTNESS OF BREATH, (Reported) Entered as Reported by: JUAN C LUONG on 08/26/19 0836 Biotin (Biotin) 800 Mcg Tablet, 800 MCG PO DAILY, (Reported) Entered as Reported by: JUAN C LUONG on 08/26/19 0836 Famotidine (Pepcid) 20 Mg Tablet, 20 MG PO BID Prescribed by: PAULA MITCHELL on 09/02/20 0017 Fluticasone Propionate (Flonase Allergy Relief) 9.9 Ml [place].susp, 1 SPRAY NS DAILY PRN for CONGESTION, (Reported) Entered as Reported by: JUAN C LUONG on 08/26/19 0837 Lisinopril/Hydrochlorothiazide (Lisinopril-Hctz 20-25 mg Tab) 1 Each Tablet, 1 EA PO 1400, (Reported) Entered as Reported by: KAILA SWANSON on 08/24/191945 Lorazepam (Ativan) 2 Mg Tablet, 2 MG PO Q4H Prescribed by: PAULA MITCHELL on 09/02/2016 Metoprolol Tartrate (Metoprolol Tartrate) 50 Mg Tablet, 50 MG PO BID, (Reported) Entered as Reported by: KAILA SWANSON on 08/24/191945 Multivitamin (Multivitamin) 1 Each Tablet, 1 EACH PO DAILY, (Reported) Entered as Reported by: JUAN C LUONG on 08/26/19835 Omeprazole (Omeprazole) 40 Mg Capsule.dr, 40 MG PO DAILY PRN Prescribed by: PAULA MITCHELL on 09/02/2016 Vitamin E Acetate (Vitamin E) 200 Unit Capsule, 200 UNIT PO DAILY, (Reported) Entered as Reported by: JUAN C LUONG on 08/26/19835 Discontinued Medications Hydrocodone/Acetaminophen (Hydrocodone-Acetamin 5-325 mg) 5 Mg-325 Mg Tablet, 1 TAB PO Q6H PRN for PAIN-SEVERE (8-10) Discontinued Reason: Referral/FU Appt-Addtl Prescribed by: GOLDIE VITAL on 05/06/22106 Last Action: Discontinued Lidocaine (Lidocaine Pain Relief) 1 Each Adh..patch, 1 EACH TP DAILY PRN for PAIN-BREAKTHROUGH, (Reported) Discontinued Reason: Referral/FU Appt-Addtl Entered as Reported by: JUAN C LUONG on 08/26/19835 Last Action: Discontinued Lidocaine (Lidocaine) 4 % Adh..patch, 1 EACH TP DAILY Discontinued Reason: Referral/FU Appt-Addtl Prescribed by: NOLVIA FIGUEROA MD on 01/09/23 07 Last Action: Discontinued Ondansetron (Ondansetron Odt) 4 Mg Tab.rapdis, 4 MG PO Q6H Discontinued Reason: Referral/FU Appt-Addtl Prescribed by: PAULA MITCHELL on 09/02/2016 Last Action: Discontinued Ondansetron (Ondansetron Odt) 4 Mg Tab.rapdis, 4 MG PO Q6H PRN for NAUSEA/VOMITING Discontinued Reason: Referral/FU Appt-Addtl Prescribed by: GOLDIE VITAL on 05/06/22105 Last Action: Discontinued Oxycodone HCl/Acetaminophen (Percocet 5-325 mg Tablet) 1 Each Tablet, 1 TAB PO Q6H Discontinued Reason: Referral/FU Appt-Addtl Prescribed by: JADEN WOODS on 01/09/23 07 Last Action: Discontinued Review of Systems Constitutional: see HPI (ESPERANZA WOODWARD DO) Past Jdwftmt-Fdwjxq-Notshb Hx Patient Social History Tobacco Use?: Yes Use of E-Cig and/or Vaping dev: No Substance use?: No Alcohol Use?: Yes (ESPERANZA WOODWARD DO) Immunizations Up To Date Tetanus Booster (TDap): Unknown First/Initial COVID19 Vaccinat: Not currently vaccinated (ESPERANZA WOODWARD DO) Seasonal Allergies Seasonal Allergies: No (ESPERANZA WOODWARD DO) Past Medical History Surgery/Hospitalization HX: RA; Psoratic arthritis; Psoriasis; Graves Disease treated with radiation; HTN Surgeries: Yes (right leg w/ huyen) Orthopedic, Tubal Ligation Respiratory: Yes Asthma Currently Using CPAP: No Currently Using BIPAP: No Cardiac: Yes Hypertension 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 oz. kg; 26.00 BMI Method: General Appearance: WD/WN, no apparent distress HEENT: normal ENT inspection, pharynx normal Neck: non-tender, supple Respiratory: chest non-tender, lungs clear, normal breath sounds, no respiratory distress, no accessory muscle use Cardiovascular: regular rate, rhythm, no murmur Gastrointestinal: normal bowel sounds, non tender, soft Extremities: non-tender, normal inspection, normal capillary refill Neurologic/Psychiatric: alert, oriented x 3 Appearance/Memory: appropriate appearance, appropriate insight Behavior/Eye Contact: cooperative Skin: normal color, warm/dry (ESPERANZA WOODWARD DO) Progress/Results/Core Measures Results/Orders Lab Results Laboratory Tests Test 02/12/23 04:40 02/12/23 05:15 02/12/23 09:00 Range/Units White Blood Count 7.3 4.3-11.0 10^3/uL Red Blood Count 4.90 3.80-5.11 10^6/uL Hemoglobin 15.3 11.5-16.0 g/dL Hematocrit 45 35-52 % Mean Corpuscular Volume 91 80-99 fL Mean Corpuscular Hemoglobin 31 25-34 pg Mean Corpuscular Hemoglobin Concent 34 32-36 g/dL Red Cell Distribution Width 13.3 10.0-14.5 % Platelet Count 453 H 130-400 10^3/uL Mean Platelet Volume 7.9 L 9.0-12.2 fL Immature Granulocyte % (Auto) 0 % Neutrophils (%) (Auto) 47 42-75 % Lymphocytes (%) (Auto) 46 H 12-44 % Monocytes (%) (Auto) 5 0-12 % Eosinophils (%) (Auto) 1 0-10 % Basophils (%) (Auto) 1 0-10 % Neutrophils # (Auto) 3.4 1.8-7.8 10^3/uL Lymphocytes # (Auto) 3.4 1.0-4.0 10^3/uL Monocytes # (Auto) 0.4 0.0-1.0 10^3/uL Eosinophils # (Auto) 0.1 0.0-0.3 10^3/uL Basophils # (Auto) 0.1 0.0-0.1 10^3/uL Immature Granulocyte # (Auto) 0.0 0.0-0.1 10^3/uL Sodium Level 139 135-145 MMOL/L Potassium Level 3.0 L 3.6-5.0 MMOL/L Chloride Level 98 98-107 MMOL/L Carbon Dioxide Level 24 21-32 MMOL/L Anion Gap 17 H 5-14 MMOL/L Blood Urea Nitrogen 5 L 7-18 MG/DL Creatinine 0.52 L 0.60-1.30 MG/DL Estimat Glomerular Filtration Rate 117 BUN/Creatinine Ratio 10 Glucose Level 120 H 70-105 MG/DL Calcium Level 9.1 8.5-10.1 MG/DL Corrected Calcium 9.2 8.5-10.1 MG/DL Total Bilirubin < 0.2 0.1-1.0 MG/DL Aspartate Amino Transf (AST/SGOT) 21 5-34 U/L Alanine Aminotransferase (ALT/SGPT) 15 0-55 U/L Alkaline Phosphatase 99 40-136 U/L Total Protein 7.8 6.4-8.2 GM/DL Albumin 3.9 3.2-4.5 GM/DL Lipase 25 8-78 U/L Salicylates Level < 0.3 L 5.0-20.0 MG/DL Acetaminophen Level < 10 L 10-30 UG/ML Serum Alcohol 233 H 80 H <10 MG/DL Urine Color YELLOW Urine Clarity CLEAR Urine pH 5.5 5-9 Urine Specific [place] <=1.005 1.016-1.022 Urine Protein NEGATIVE NEGATIVE Urine Glucose (UA) NEGATIVE NEGATIVE Urine Ketones NEGATIVE NEGATIVE Urine Nitrite NEGATIVE NEGATIVE Urine Bilirubin NEGATIVE NEGATIVE Urine Urobilinogen 0.2 < = 1.0 MG/DL Urine Leukocyte Esterase NEGATIVE NEGATIVE Urine RBC (Auto) NEGATIVE NEGATIVE Urine RBC NONE /HPF Urine WBC 0-2 /HPF Urine Squamous Epithelial Cells >50 H /HPF Urine Crystals NONE /LPF Urine Bacteria TRACE /HPF Urine Casts NONE /LPF Urine Mucus NEGATIVE /LPF Urine Culture Indicated NO Urine Test NEGATIVE NEGATIVE Urine Opiates Screen NEGATIVE NEGATIVE Urine Oxycodone Screen NEGATIVE NEGATIVE Urine Methadone Screen NEGATIVE NEGATIVE Urine Propoxyphene Screen NEGATIVE NEGATIVE Urine Barbiturates Screen NEGATIVE NEGATIVE Ur Tricyclic Antidepressants Screen NEGATIVE NEGATIVE Urine Phencyclidine Screen NEGATIVE NEGATIVE Urine Amphetamines Screen NEGATIVE NEGATIVE Urine Methamphetamines Screen NEGATIVE NEGATIVE Urine Benzodiazepines Screen NEGATIVE NEGATIVE Urine Cocaine Screen NEGATIVE NEGATIVE Urine Cannabinoids Screen NEGATIVE NEGATIVE SARS-CoV-2 RNA (RT-PCR) Not Detected Not Detecte (LEONELA GOMES MD) My Orders Orders - LEONELA GOMES MD Olanzapine Orally Dissolve Tab (Olanzapi (02/12/23 07:15) (LEONELA GOMES MD) Vital Signs/I&O 02/12/23 04:15 Temp 36.8 Pulse 128 Resp 16 B/P (MAP) 157/108 (124) Pulse Ox 99 O2 Delivery Room Air (LEONELA GOMES MD) Progress Progress Note : Time: 06:50 Progress Note Patient is medically cleared. She has mild hypokalemia, ordered p.o. repletion. Her alcohol is too high to be screened at present, 233. Will recheck at 9 AM. Care handed off to Dr. Gomes at 0700. (ESPERANZA WOODWARD DO) Progress Note : Progress Note Received the patient in signout pending her mental health screening. Her alcohol level was too elevated, we rechecked it later, it was appropriately below 100, so they went forward with her screening. When the patient was clinically sober, she is no longer suicidal. They were able to come up with a safety plan together which I am agreeable to. She was then discharged home in stable condition with strict return precautions. (LEONELA GOMES MD) Comment Sinus tachycardia 121 bpm. Normal intervals. Normal axis. Baseline artifact however no overt ST or T wave abnormalities. No ectopy. No STEMI. (ESPERANZA WOODWARD DO) Departure Impression Primary Impression: Suicidal ideation Disposition: 01 HOME, SELF-CARE Condition: Stable Departure-Patient Inst. Decision time for Depature: 12:55 (LEONELA GOMES MD) Referrals: JULEE HAINES APRN (PCP) Primary Care Physician [facility] (Family) Primary Care Physician Patient Instructions: OUTPT MENTAL HEALTH SERVICES, Suicide Prevention Add. Discharge Instructions: Please come back to the ER if you have any thoughts to hurt yourself. Please follow-up with outpatient mental health and follow the safety plan that you signed. Work/School Note: Work Release Form Date Seen in the Emergency Department: Feb 12, 2023 Return to Work: Feb 13, 2023 Restrictions: No Restrictions ESPERANZA WOODWARD DO Feb 12, 2023 04:35 LEONELA GOMES MD Feb 12, 2023 12:50
[2023-02-12 04:48] LABS: BASOPHILS # (AUTO) 0.1 10^3/uL (0.0-0.1); BASOPHILS % (AUTO) 1 % (0-10); EOSINOPHILS # (AUTO) 0.1 10^3/uL (0.0-0.3); EOSINOPHILS % (AUTO) 1 % (0-10); HEMATOCRIT 45 % (35-52); HEMOGLOBIN 15.3 g/dL (11.5-16.0); LYMPHOCYTES # (AUTO) 3.4 10^3/uL (1.0-4.0); LYMPHOCYTES % (AUTO) 46 % (12-44); MEAN CORPUSCULAR HEMOGLOBIN 31 pg (25-34); MEAN CORPUSCULAR HGB CONC 34 g/dL (32-36); MEAN CORPUSCULAR VOLUME 91 fL (80-99); MEAN PLATELET VOLUME 7.9 fL (9.0-12.2); MONOCYTES # (AUTO) 0.4 10^3/uL (0.0-1.0); MONOCYTES % (AUTO) 5 % (0-12); NEUTROPHILS # (AUTO) 3.4 10^3/uL (1.8-7.8); NEUTROPHILS % (AUTO) 47 % (42-75); PLATELET COUNT 453 10^3/uL (130-400); WHITE BLOOD COUNT 7.3 10^3/uL (4.3-11.0)
[2023-02-12 05:05] LABS: ALANINE AMINOTRANSFERASE 15 U/L (0-55); ALKALINE PHOSPHATASE 99 U/L (40-136); BILIRUBIN,TOTAL < 0.2 MG/DL (0.1-1.0); BUN/CREATININE RATIO 10; CALCIUM 9.1 MG/DL (8.5-10.1); CARBON DIOXIDE 24 MMOL/L (21-32); CHLORIDE 98 MMOL/L (98-107); CREATININE SERUM 0.52 MG/DL (0.60-1.30); GFR ESTIMATED 117; GLUCOSE 120 MG/DL (70-105); SODIUM 139 MMOL/L (135-145)
[2023-02-12 05:06] LABS: ACETAMINOPHEN < 10 UG/ML (10-30); ALBUMIN 3.9 GM/DL (3.2-4.5); LIPASE 25 U/L (8-78); SALICYLATE < 0.3 MG/DL (5.0-20.0); TOTAL PROTEIN 7.8 GM/DL (6.4-8.2)
[2023-02-12 05:24] LABS: BILIRUBIN,URINE NEGATIVE (NEGATIVE); CLARITY,URINE CLEAR; COLOR,URINE YELLOW; GLUCOSE, URINE (UA) NEGATIVE (NEGATIVE); KETONES,URINE NEGATIVE (NEGATIVE); LEUKOCYTE ESTERASE ,URINE NEGATIVE (NEGATIVE); NITRITE,URINE NEGATIVE (NEGATIVE); PH,URINE 5.5 (5-9); PROTEIN,URINE NEGATIVE (NEGATIVE)
[2023-02-12 05:30] LABS: BACTERIA,URINE TRACE /HPF; HCG,QUALITATIVE URINE NEGATIVE (NEGATIVE); SQUAMOUS EPITHELIAL CELL,UR >50 /HPF; WBC,URINE 0-2 /HPF
[2023-02-12 05:37] LABS: AMPHETAMINE SCREEN, URINE NEGATIVE (NEGATIVE); BARBITURATE SCREEN URINE NEGATIVE (NEGATIVE); CANNABINOID SCREEN, URINE NEGATIVE (NEGATIVE); COCAINE SCREEN URINE NEGATIVE (NEGATIVE); METHADONE STAT NEGATIVE (NEGATIVE); OPIATE SCREEN URINE NEGATIVE (NEGATIVE); OXYCODONE STAT NEGATIVE (NEGATIVE); PROPOXYPHENE STAT NEGATIVE (NEGATIVE); TRICYCLIC ANTIDEPRESSANTS SCRE NEGATIVE (NEGATIVE)
[2023-02-12] MEDS ORDERED: POTASSIUM CHLORIDE 20 MEQ TABLET PO ONE (06:45)
[2023-02-12] MEDS ORDERED: OLANZapine 5 MG ODT TABLET PO PRN (07:15)
== END 2023-02-12 12:50 | disposition home or self-care (01) ==
LOC: EDUNIT# 04:18 → ER FS 04:19
DX: R45.851 Suicidal ideations (principal); E87.6 Hypokalemia; R00.0 Tachycardia, unspecified; Z79.899 Other long term (current) drug therapy; Z20.822 Contact with and (suspected) exposure to COVID-19
CPT/HCPCS: 36415; 80053; 80306; 81000; 83690; 84703; 85025; 87636; 93005; 99284; G0480 ×3; 80320; 80329